=== PATIENT | male | born 1945 | race Caucasian/White ===

== ENCOUNTER 2019-01-31 11:50 | Emergency (ER) | payer MEDICARE, OTHER ==
--- NOTE | 2019-01-31 12:21 | EDM.PDOC ---
ED HPI GENERAL MEDICAL PROBLEM - General Chief Complaint: Head Injury Stated Complaint: FELL HIT HEAD Time Seen by Provider: 01/31/19 12:00 Source of Information: Reports: Patient, Family, RN, RN Notes Reviewed - History of Present Illness INITIAL COMMENTS - FREE TEXT/NARRATIVE: Pt to ER with with c/o laceration to the back of the head from a fall at home. Patient has Parkinson's and is has unsteady gait. Patient stood and had a witnessed fall hitting his head on the coffee table. denies loss of consciousness. She states he has been acting appropriately. She states he has a high pain tolerance, and it is difficult to know when he is having pain. states the patient is not taking any blood thinners. states up to date on Tetanus vaccination. - Related Data Allergies Allergy/AdvReac Type Severity Reaction Status Date / Time No Known Allergies Allergy Verified 01/31/19 12:04 Home Meds: Home Meds Carbidopa/Levodopa [Carbidopa-Levodopa 25-250] 125 mg PO BIDMEALS 05/10/18 [ History] Carbidopa/Levodopa [Carbidopa-Levodopa 25-250] 250 mg PO BEDTIME 05/10/18 [ History] Polyethylene Glycol 3350 [MiraLAX] 17 gm PO ASDIRECTED 05/11/18 [History] Past Medical History HEENT History: Reports: None Cardiovascular History: Reports: None Respiratory History: Reports: Pneumonia, Recurrent Gastrointestinal History: Reports: None Genitourinary History: Reports: UTI, Recurrent Musculoskeletal History: Reports: Other (See Below) Other Musculoskeletal History: Parkinsons disease- shuffled gait Neurological History: Reports: Parkinson's Psychiatric History: Reports: None Endocrine/Metabolic History: Reports: None Hematologic History: Reports: None Immunologic History: Reports: None Oncologic (Cancer) History: Reports: None Dermatologic History: Reports: None - Infectious Disease History Infectious Disease History: Reports: None - Past Surgical History Head Surgeries/Procedures: Reports: None Social & Family History - Family History Family Medical History: Noncontributory - Tobacco Use Smoking Status *Q: Never Smoker - Caffeine Use Caffeine Use: Reports: None - Recreational Drug Use Recreational Drug Use: No ED ROS GENERAL - Review of Systems Review Of Systems: ROS reveals no pertinent complaints other than HPI. ED EXAM, HEAD INJURY - Physical Exam Exam: See Below Exam Limited By: Altered Mental Status (Confused, does not answer appropriately , this is not new.) General Appearance: Alert, WD/WN, No Apparent Distress Head: Normocephalic, Scalp Lacerations, Scalp Tenderness Nexus Criteria: Painful Distraction Injuries. No: Posterior, Midline Cervical Tenderness, Evidence of Intoxication, Altered Level of Consciousness, Focal Neurological Deficit Eyes: Bilateral Eye: EOMI, Normal Inspection, PERRL (4 brisk) Ears: Normal External Exam, Normal Canal, Hearing Grossly Normal, Normal TMs Nose: Normal Inspection, Normal Mucousa, No Blood Throat/Mouth: Normal Inspection, Normal Lips, Normal Teeth, Normal Gums, Normal Oropharynx, Normal Voice, No Airway Compromise Neck: Non-Tender, Full Range of Motion, Normal Alignment, Normal Inspection Respiratory: No Respiratory Distress, Lungs Clear, Normal Breath Sounds, No Accessory Muscle Use, Chest Non-Tender Cardiovascular: Normal Peripheral Pulses, Regular Rate, Rhythm, No Edema, No Gallop, No JVD, No Murmur, No Rub GI/Abdominal Exam: Normal Bowel Sounds, Soft, Non-Tender, No Organomegaly, No Distention, No Abnormal Bruit, No Mass (Male) Exam: Deferred Rectal (Males) Exam: Deferred Back Exam: Full Range of Motion, Normal Inspection, NT Extremities: Normal Inspection, Normal Range of Motion, Non-Tender, No Pedal Edema, Normal Capillary Refill Neurologic: No Motor/Sensory Deficits, Alert, Normal Mood/Affect Skin: Normal Color, Warm/Dry, Other (1cm laceration to the back of the head/ scalp\) - Desi Coma Score Best Eye Response ([place]): (4) Open Spontaneously Best Verbal Response (Desi): (4) Confused Conversation Best Motor Response (Desi): (5) Localizes to Pain Desi Total: 13 (Normal for patient) ED LACERATION/WOUND & ML PROC - Laceration/Wound Repair Middle Posterior Occipital Head Lac/wound length in cm: 1 Appearance: Subcutaneous Distal NVT: Neuro & Vascular Intact Skin Prep: Chlorhexidine (Hibiciens) Exploration/Debridement/Repair: Wound Explored, In a Bloodless Field, Explored to Base, No Foreign Material Found Closed with: Reuben # of Sutures: 3 Drain Placement: No Sterile Dressing Applied: None Tetanus Status Addressed: Yes Complications: No Course - Vital Signs Last Recorded V/S: Last Vital Signs Temp 97.6 F 01/31/19 12:02 Pulse 87 01/31/19 12:02 Resp 18 01/31/19 12:02 BP 125/82 01/31/19 12:02 Pulse Ox 100 01/31/19 12:02 Departure - Departure Time of Disposition: 12:17 Disposition: Home, Self-Care 01 Condition: Fair Clinical Impression: Parkinsons, Laceration, Concussion with no loss of consciousness Fall at home Qualifiers: Encounter type: initial encounter Qualified Code(s): W19.XXXA - Unspecified fall, initial encounter - Discharge Information *PRESCRIPTION DRUG MONITORING PROGRAM REVIEWED*: No *COPY OF PRESCRIPTION DRUG MONITORING REPORT IN PATIENT XUAN: No Instructions: Concussion, Adult, [id number], Post-Concussion Syndrome, Easy- to-Read, Facial or Scalp Contusion, [id number], Head Injury, Adult, Easy-to- Read, Hematoma, [id number] Forms: ED Department Discharge Additional Instructions: Monitor for signs of concussion (change in mental status, headaches, vomiting, uncontrolled emotions, crying) Decrease stimuli, no TV. Rest in quiet, dark room. Follow up with your primary care facility if any problems Have reuben taken out in 7-10 days by your Primary care facility
== END 2019-01-31 12:26 | disposition home or self-care (01) ==
LOC: DL.ED 11:50
DX: S06.0X0A Concussion without loss of consciousness, initial encounter (principal); S01.01XA Laceration without foreign body of scalp, initial encounter; G20 Parkinson's disease; W19.XXXA Unspecified fall, initial encounter; W22.8XXA Striking against or struck by other objects, initial encounter
CPT/HCPCS: 12001; 99283

== ENCOUNTER 2019-08-17 19:47 | Inpatient (IN) | payer MEDICARE, OTHER ==
--- NOTE | 2019-08-17 20:12 | EDM.PDOC ---
ED HPI GENERAL MEDICAL PROBLEM - General Chief Complaint: Fever Stated Complaint: AMBULANCE Time Seen by Provider: 08/17/19 20:07 Source of Information: Reports: Family History Limitations: Reports: Other (parkinson) - History of Present Illness INITIAL COMMENTS - FREE TEXT/NARRATIVE: spouse states pt started getting sick yesterday, no appetite no energy, worse today with fever, occasional cough, no V/D. no acting his usual self, denies falling/head injury. - Related Data Allergies Allergy/AdvReac Type Severity Reaction Status Date / Time No Known Allergies Allergy Verified 08/17/19 20:28 Home Meds: Home Meds Carbidopa/Levodopa [Carbidopa-Levodopa 25-250] 125 mg PO BIDMEALS 05/10/18 [ History] Carbidopa/Levodopa [Carbidopa-Levodopa 25-250] 250 mg PO BEDTIME 05/10/18 [ History] polyethylene glycoL 3350 [MiraLAX] 17 gm PO ASDIRECTED 05/11/18 [History] Past Medical History HEENT History: Reports: None Cardiovascular History: Reports: None Respiratory History: Reports: Pneumonia, Recurrent Gastrointestinal History: Reports: None Genitourinary History: Reports: UTI, Recurrent Musculoskeletal History: Reports: Other (See Below) Other Musculoskeletal History: Parkinsons disease- shuffled gait Neurological History: Reports: Parkinson's Psychiatric History: Reports: None Endocrine/Metabolic History: Reports: None Hematologic History: Reports: None Immunologic History: Reports: None Oncologic (Cancer) History: Reports: None Dermatologic History: Reports: None - Infectious Disease History Infectious Disease History: Reports: None - Past Surgical History Head Surgeries/Procedures: Reports: None Social & Family History - Family History Family Medical History: Noncontributory - Caffeine Use Caffeine Use: Reports: None ED ROS GENERAL - Review of Systems Review Of Systems: Comprehensive ROS is negative, except as noted in HPI. ED EXAM, GENERAL - Physical Exam Exam: See Below Exam Limited By: No Limitations General Appearance: Lethargic, Other (non verbal, follows command ok. ) Ears: Hearing Grossly Normal Throat/Mouth: Inflammation Head: Atraumatic Neck: Non-Tender, Full Range of Motion Respiratory/Chest: No Respiratory Distress, No Accessory Muscle Use, Rhonchi Cardiovascular: Regular Rate, Rhythm GI/Abdominal: Soft, Non-Tender Neurological: Slow to Respond Psychiatric: Flat Affect Skin Exam: Warm, Dry, Normal Color Lymphatic: No Adenopathy Course - Vital Signs Last Recorded V/S: Last Vital Signs Temp 37.6 C 08/17/19 19:53 Pulse 90 08/17/19 19:53 Resp 19 08/17/19 19:53 BP 122/76 08/17/19 19:53 Pulse Ox 98 08/17/19 19:53 - Orders/Labs/Meds Orders: Active Orders 24 hr Category Date Time Status RT Aerosol Therapy [RC] ASDIRECTED Care 08/17/19 21:41 Active RT Aerosol Therapy [RC] ASDIRECTED Care 08/17/19 21:53 Ordered Chest 2V [CR] Urgent Exams 08/17/19 21:41 Stop Req CULTURE BLOOD [BC] Stat Lab 08/17/19 20:09 Results CULTURE STREP A CONFIRMATION [RM] Stat Lab 08/17/19 20:09 Results STREP SCRN A RAPID W CULT CONF [RM] Stat Lab 08/17/19 20:09 Results Isolation [COMM] Routine Oth 08/17/19 20:00 Active Labs: Laboratory Tests 08/17/19 08/17/19 08/17/19 Range/Units 20:09 20:09 20:09 WBC 14.4 H (5.0-10.0) 10^3/uL RBC 4.93 (4.6-6.2) 10^6/uL Hgb 14.8 D (14.0-18.0) g/dL Hct 45.6 (40.0-54.0) % MCV 92.5 (80-100) fL MCH 30.0 (27.0-34.0) pg MCHC 32.5 L (33.0-35.0) g/dL Plt Count 314 (150-450) 10^3/uL Neut % (Auto) 82.2 H (42.2-75.2) % Lymph % (Auto) 7.0 L (20.5-50.1) % [place] % (Auto) 10.2 H (2-8) % Eos % (Auto) 0.4 L (1.0-3.0) % Baso % (Auto) 0.2 (0.0-1.0) % Sodium 142 (136-145) mmol/L Potassium 4.0 (3.5-5.1) mmol/L Chloride 103 (98-107) mmol/L Carbon Dioxide 31 (21-32) mmol/L Anion Gap 12.0 (7-13) mEq/L BUN 26 H (7-18) mg/dL Creatinine 1.21 (0.70-1.30) mg/dL Est Cr Clr Drug Dosing TNP Estimated GFR (MDRD) 59 BUN/Creatinine Ratio 21.5 (No establ ref range) Glucose 101 H (74-99) mg/dL Lactic Acid 1.4 (0.4-2.0) mmol/L Calcium 8.8 (8.5-10.1) mg/dL Total Bilirubin 1.6 H (0.2-1.0) mg/dL AST 104 H (15-37) U/L ALT 34 (16-63) U/L Alkaline Phosphatase 54 (46-116) U/L Total Protein 8.0 (6.4-8.2) g/dL Albumin 3.4 (3.4-5.0) g/dL Globulin 4.6 Albumin/Globulin Ratio 0.7 Meds: Medications Discontinued Medications Generic Name Dose Route Start Last Admin Trade Name Freq PRN Reason Stop Dose Admin Albuterol/Ipratropium 3 ml 08/17/19 21:41 08/17/19 21:46 Duoneb 3.0-0.5 Mg/3 Ml NEB 08/17/19 21:42 3 ml ONETIME ONE Administration Albuterol/Ipratropium 3 ml 08/17/19 21:53 Duoneb 3.0-0.5 Mg/3 Ml NEB 08/17/19 21:54 ONETIME ONE - Re-Assessments/Exams Free Text/Narrative Re-Assessment/Exam: 08/17/19 21:[address] West who kindly admitted pt to observation Departure - Departure Time of Disposition: 21:57 Disposition: Refer to Observation Condition: Good Clinical Impression: Pneumonia Qualifiers: Pneumonia type: due to unspecified organism Laterality: right Lung location: middle lobe of lung Qualified Code(s): J18.9 - Pneumonia, unspecified organism - Discharge Information Forms: ED Department Discharge Sepsis Event Note - Evaluation Sepsis Screening Result: No Definite Risk - Focused Exam Vital Signs: Vital Signs Temp Pulse Resp BP Pulse Ox 08/17/19 19:53 37.6 C 90 19 122/76 98 Date Exam was Performed: 08/17/19 Time Exam was Performed: 21:57 - My Orders Last 24 Hours: My Active Orders 08/17/19 20:00 Isolation [COMM] Routine 08/17/19 20:09 CULTURE BLOOD [BC] Stat CULTURE STREP A CONFIRMATION [RM] Stat STREP SCRN A RAPID W CULT CONF [RM] Stat 08/17/19 21:41 RT Aerosol Therapy [RC] ASDIRECTED Chest 2V [CR] Urgent 08/17/19 21:53 RT Aerosol Therapy [RC] ASDIRECTED - Assessment/Plan Last 24 Hours: My Active Orders 08/17/19 20:00 Isolation [COMM] Routine 08/17/19 20:09 CULTURE BLOOD [BC] Stat CULTURE STREP A CONFIRMATION [RM] Stat STREP SCRN A RAPID W CULT CONF [RM] Stat 08/17/19 21:41 RT Aerosol Therapy [RC] ASDIRECTED Chest 2V [CR] Urgent 08/17/19 21:53 RT Aerosol Therapy [RC] ASDIRECTED
[2019-08-17 20:39] LABS: CHLORIDE,CL 103 mmol/L (98-107); SODIUM,NA 142 mmol/L (136-145)
[2019-08-17] MEDS ORDERED: Albuterol/Ipratropium 3.0-0.5 MG/3 ML Neb Soln NEB ONE ×2 (21:41→21:53)
[2019-08-17] MEDS ORDERED: Ondansetron 4 MG Tab.DIS PO PRN (22:44)
[2019-08-17] MEDS ORDERED: Acetaminophen 325 MG Tab PO PRN (22:44)
--- NOTE | 2019-08-17 22:59 | PCM.HP ---
H&P History of Present Illness - General Date of Service: 08/17/19 Admit Problem/Dx: Admission Diagnosis/Problem Admission Diagnosis/Problem Pneumonia Source of Information: Patient, Family History Limitations: Reports: No Limitations - History of Present Illness Initial Comments - Free Text/Narative: Naomi is a 73 y/o with PMH of Parkinson diseases who was brought to the ED with spouse for feeling unwell, cough x 1 day. As per spouse patient has not been his self since yesterday. He is usually up and about but since yesterday he has been in bed and not very much alert. He has low appetite, low energy, fever, chills, occasional cough. He has not had any sick contact or traveled recently. He denies n/v, abdominal pain. No chest pain. No diarrhea. In the ED vitals unremarkable. Cxr concerning for LLL consolidation. Onset of Symptoms: Reports: Gradual Duration of Symptoms: Reports: Day(s): Location: Reports: Chest Quality: Reports: Ache Improves with: Reports: None Worsens with: Reports: None Associated Symptoms: Reports: Cough, Fever/Chills - Related Data Allergies/Adverse Reactions: Allergies Allergy/AdvReac Type Severity Reaction Status Date / Time No Known Allergies Allergy Verified 08/17/19 20:28 Home Medications: Home Meds Carbidopa/Levodopa [Carbidopa-Levodopa 25-250] 125 mg PO BIDMEALS 05/10/18 [ History] Carbidopa/Levodopa [Carbidopa-Levodopa 25-250] 250 mg PO BEDTIME 05/10/18 [ History] polyethylene glycoL 3350 [MiraLAX] 17 gm PO ASDIRECTED 05/11/18 [History] Past Medical History HEENT History: Reports: None Cardiovascular History: Reports: None Respiratory History: Reports: Pneumonia, Recurrent Gastrointestinal History: Reports: None Genitourinary History: Reports: UTI, Recurrent Musculoskeletal History: Reports: Other (See Below) Other Musculoskeletal History: Parkinsons disease- shuffled gait Neurological History: Reports: Parkinson's Psychiatric History: Reports: None Endocrine/Metabolic History: Reports: None Hematologic History: Reports: None Immunologic History: Reports: None Oncologic (Cancer) History: Reports: None Dermatologic History: Reports: None - Infectious Disease History Infectious Disease History: Reports: None - Past Surgical History Head Surgeries/Procedures: Reports: None Social & Family History - Family History Family Medical History: Noncontributory - Tobacco Use Smoking Status *Q: Never Smoker Second Hand Smoke Exposure: No - Caffeine Use Caffeine Use: Reports: None - Recreational Drug Use Recreational Drug Use: No H&P Review of Systems - Review of Systems: Review Of Systems: See Below General: Reports: No Symptoms HEENT: Reports: No Symptoms Pulmonary: Reports: Cough Cardiovascular: Reports: No Symptoms Gastrointestinal: Reports: No Symptoms Genitourinary: Reports: No Symptoms Musculoskeletal: Reports: No Symptoms Skin: Reports: No Symptoms Psychiatric: Reports: No Symptoms Neurological: Reports: No Symptoms Hematologic/Lymphatic: Reports: No Symptoms Immunologic: Reports: No Symptoms Exam - Exam Exam: See Below - Vital Signs Vital Signs: Last Vital Signs Temp 99.6 F 08/17/19 19:53 Pulse 90 08/17/19 19:53 Resp 19 08/17/19 19:53 BP 122/76 08/17/19 19:53 Pulse Ox 98 08/17/19 19:53 Weight: 148 lb - Exam Quality Assessment: Supplemental Oxygen, DVT Prophylaxis General: Alert, Oriented, 4 HEENT: PERRLA, Hearing Intact, Mucosa Moist & [place], Nares Patent, Normal Nasal Septum, Posterior Pharynx Clear, Conjunctiva Clear, EOMI, EACs Clear, TMs Clear Neck: Supple, Trachea Midline, 2 Lungs: Clear to Auscultation, Normal Respiratory Effort Cardiovascular: Regular Rate, Regular Rhythm GI/Abdominal Exam: Normal Bowel Sounds, Soft, Non-Tender, No Organomegaly, No Distention, No Abnormal Bruit, No Mass, Pelvis Stable (Male) Exam: No Hernia, Normal Inspection, Normal Prostate, Circumcised Rectal (Males) Exam: Normal Exam, Normal Rectal Tone, Prostate Normal Back Exam: Normal Inspection, Full Range of Motion, NT Extremities: Normal Inspection, Normal Range of Motion, Non-Tender, No Pedal Edema, Normal Capillary Refill Skin: Warm, Dry, Intact Neurological: Cranial Nerves Intact, Reflexes Equal Bilateral Neuro Extensive - Mental Status: Alert, Oriented x3, Normal Mood/Affect, Normal Cognition Neuro Extensive - Motor, Sensory, Reflexes: CN II-XII Intact, Normal Gait, Normal Reflexes Psychiatric: Alert, Normal Affect, Normal Mood - Patient Data Lab Results Last 24 hrs: Laboratory Results - last 24 hr 08/17/19 08/17/19 08/17/19 Range/Units 20:09 20:09 20:09 WBC 14.4 H (5.0-10.0) 10^3/uL RBC 4.93 (4.6-6.2) 10^6/uL Hgb 14.8 D (14.0-18.0) g/dL Hct 45.6 (40.0-54.0) % MCV 92.5 (80-100) fL MCH 30.0 (27.0-34.0) pg MCHC 32.5 L (33.0-35.0) g/dL Plt Count 314 (150-450) 10^3/uL Neut % (Auto) 82.2 H (42.2-75.2) % Lymph % (Auto) 7.0 L (20.5-50.1) % [place] % (Auto) 10.2 H (2-8) % Eos % (Auto) 0.4 L (1.0-3.0) % Baso % (Auto) 0.2 (0.0-1.0) % Sodium 142 (136-145) mmol/L Potassium 4.0 (3.5-5.1) mmol/L Chloride 103 (98-107) mmol/L Carbon Dioxide 31 (21-32) mmol/L Anion Gap 12.0 (7-13) mEq/L BUN 26 H (7-18) mg/dL Creatinine 1.21 (0.70-1.30) mg/dL Est Cr Clr Drug Dosing TNP Estimated GFR (MDRD) 59 BUN/Creatinine Ratio 21.5 (No establ ref range) Glucose 101 H (74-99) mg/dL Lactic Acid 1.4 (0.4-2.0) mmol/L Calcium 8.8 (8.5-10.1) mg/dL Total Bilirubin 1.6 H (0.2-1.0) mg/dL AST 104 H (15-37) U/L ALT 34 (16-63) U/L Alkaline Phosphatase 54 (46-116) U/L Total Protein 8.0 (6.4-8.2) g/dL Albumin 3.4 (3.4-5.0) g/dL Globulin 4.6 Albumin/Globulin Ratio 0.7 Result Diagrams: 08/17/19 20:09 08/17/19 20:09 Tomi Results Last 24 hrs: Microbiology 08/17/19 20:09 Group A Streptococcus Rapid Screen - Final Throat NEGATIVE STREP A SCREEN REFERENCE RANGE: NEGATIVE 08/17/19 20:09 Influenza Type A Antigen Screen - Final Nasal, Left NEGATIVE INFLUENZA A VIRUS AG REFERENCE RANGE: NEGATIVE Influenza Type B Antigen Screen - Final NEGATIVE INFLUENZA B VIRUS AG REFERENCE RANGE: NEGATIVE 08/17/19 20:09 Anaerobic Blood Culture - Final Blood Problem List Initiated/Reviewed/Updated: Yes Orders Last 24hrs: Active Orders 24 hr Category Date Time Status Admission Diagnosis [ADT] Stat ADT 08/17/19 21:58 Ordered Admission Status [Patient Status] [ADT] Routine ADT 08/17/19 21:58 Active Ambulate [RC] ASDIRECTED Care 08/17/19 22:44 Ordered Blood Glucose Check, Bedside [RC] WITHMEALSANDBED Care 08/17/19 22:44 Ordered Height and Weight [RC] DAILY Care 08/17/19 22:44 Ordered Intake and Output [RC] QSHIFT Care 08/17/19 22:46 Ordered Notify Provider Vital Signs [RC] ASDIRECTED Care 08/17/19 22:46 Ordered Oxygen Therapy [RC] PRN Care 08/17/19 22:44 Ordered Pulse Oximetry [RC] PRN Care 08/17/19 22:46 Ordered RT Aerosol Therapy [RC] ASDIRECTED Care 08/17/19 21:41 Active RT Aerosol Therapy [RC] ASDIRECTED Care 08/17/19 21:53 Active VTE/DVT Education [RC] PER UNIT ROUTINE Care 08/17/19 22:44 Ordered Vital Signs [RC] Q4H Care 08/17/19 22:44 Ordered OT Evaluation and Treatment [CONS] Routine Cons 08/17/19 22:44 Ordered PT Evaluation and Treatment [CONS] Routine Cons 08/17/19 22:44 Ordered Regular Diet [DIET] Diet 08/17/19 Dinner Ordered BASIC METABOLIC PANEL,BMP [CHEM] DAILY Lab 08/18/19 07:00 Ordered BASIC METABOLIC PANEL,BMP [CHEM] DAILY Lab 08/19/19 07:00 Ordered CBC W/O DIFF,HEMOGRAM [HEME] DAILY Lab 08/18/19 07:00 Ordered CBC W/O DIFF,HEMOGRAM [HEME] DAILY Lab 08/19/19 07:00 Ordered CULTURE BLOOD [BC] Stat Lab 08/17/19 20:09 Results CULTURE SPUTUM + SMEAR [RM] Stat Lab 08/17/19 22:44 Ordered CULTURE STREP A CONFIRMATION [] Stat Lab 08/17/19 20:09 Results GRAM STAIN [] Routine Lab 08/17/19 22:44 Ordered STREP SCRN A RAPID W CULT CONF [] Stat Lab 08/17/19 20:09 Results Acetaminophen [Tylenol] Med 08/17/19 22:44 Ordered 650 mg PO Q4H PRN Azithromycin [Zithromax] 500 mg Med 08/17/19 23:00 Ordered Sodium Chloride 0.9% [Normal Saline (AdvBag)] 250 ml IV Q24H Carbidopa/Levodopa [Sinemet 25-250 mg] Med 08/18/19 08:00 Ordered 125 mg PO BIDMEALS Carbidopa/Levodopa [Sinemet 25-250 mg] Med 08/18/19 21:00 Ordered 250 mg PO BEDTIME Enoxaparin [Lovenox] Med 08/18/19 09:00 Ordered 40 mg SUBCUT DAILY Ondansetron [Zofran ODT] Med 08/17/19 22:44 Ordered 4 mg PO Q6H PRN Sodium Chloride 0.9% @ 125 MLS/HR (1000ml) Med 08/17/19 22:45 Ordered Sodium Chloride 0.9% [Normal Saline] 1,000 ml IV ASDIRECTED cefTRIAXone [Rocephin] 1 gm Med 08/17/19 22:53 Ordered Sodium Chloride 0.9% [Normal Saline] 50 ml IV Q24H polyethylene glycoL 3350 [MiraLAX] Med 08/17/19 23:00 Ordered 17 gm PO ASDIRECTED Isolation [COMM] Routine Oth 08/17/19 20:00 Active Resuscitation Status Routine Resus Stat 08/17/19 22:44 Ordered Medication Orders Acetaminophen (Tylenol) 650 mg PO Q4H PRN PRN Reason: Pain (Mild 1-3)/fever Carbidopa/Levodopa (Sinemet 25-250 Mg) tab PO BEDTIME [place] Carbidopa/Levodopa (Sinemet 25-250 Mg) tab PO BIDMEALS [facility] Enoxaparin Sodium (Lovenox) 40 mg SUBCUT DAILY [place] Sodium Chloride (Normal Saline) 1,000 mls @ 125 mls/hr IV ASDIRECTED [place] Azithromycin 500 mg/ Sodium (Chloride) 250 mls @ 250 mls/hr IV Q24H [facility] Ceftriaxone Sodium 1 gm/ (Sodium Chloride) 50 mls @ 100 mls/hr IV Q24H [facility] Ondansetron HCl (Zofran Odt) 4 mg PO Q6H PRN PRN Reason: nausea, able to take PO Polyethylene Glycol (Miralax) 17 gm PO ASDIRECTED [facility] Assessment/Plan Comment:: #Community Acquired Pneumonia -Admit to medical floor -Sputum for gram stain and cx -Blood cx -IV Rocephin and Azithromycin #Leukocytosis due to above -Daily cbc #H/o Parkinson disease -Continue home medications
[2019-08-17] MEDS: Azithromycin 500 MG in Sodium Chloride 0.9% 250 ML IV SCH (23:51)
[2019-08-17] MEDS: Sodium Chloride 0.9% 1,000 ML IV SCH (23:52)
[2019-08-18] MEDS: cefTRIAXone 1 GM in Sodium Chloride 0.9% 50 ML IV SCH (01:17)
[2019-08-18 06:51] LABS: ANION GAP 11.8 mEq/L (7-13); CHLORIDE,CL 108 mmol/L (98-107); SODIUM,NA 144 mmol/L (136-145)
[2019-08-18] MEDS: Sodium Chloride 0.9% 1,000 ML IV SCH ×2 (07:53→15:54)
[2019-08-18] MEDS ORDERED: Carbidopa/Levodopa 25-250 MG Tab PO SCH ×5 (08:00→21:00)
[2019-08-18] MEDS ORDERED: Polyethylene Glycol 3350 Powder 17 GM Packet PO PRN (09:00)
[2019-08-18] MEDS ORDERED: cefTRIAXone 1 GM in Sodium Chloride 0.9% 50 ML IV SCH (09:00)
[2019-08-18] MEDS: Enoxaparin 40 MG/0.4 ML Syringe SUBCUT SCH (09:02)
--- NOTE | 2019-08-18 10:47 | PCM.PN ---
- General Info Date of Service: 08/18/19 Admission Dx/Problem (Free Text): Admission Diagnosis/Problem Admission Diagnosis/Problem Pneumonia Subjective Update: Naomi is a 73 y/o with PMH of Parkinson diseases who was brought to the ED with spouse for feeling unwell, cough x 1 day. He was admitted for pneumonia. Cxr was concerning for LLL consolidation. He was started on IV abx. Today patient was seen and examined. He is a fairly okay. Patient was seen sitting up in bed being assisted with breakfast. Patient could not provide any history. He is noncommunicative. Vital stable. Functional Status: Reports: Pain Controlled - Review of Systems General: Reports: No Symptoms HEENT: Reports: No Symptoms Pulmonary: Reports: No Symptoms Cardiovascular: Reports: No Symptoms Gastrointestinal: Reports: No Symptoms Genitourinary: Reports: No Symptoms Musculoskeletal: Reports: No Symptoms Skin: Reports: No Symptoms Neurological: Reports: No Symptoms Psychiatric: Reports: No Symptoms - Patient Data Vitals - Most Recent: Last Vital Signs Temp 99.2 F 08/18/19 04:00 Pulse 80 08/18/19 04:00 Resp 18 08/18/19 04:00 BP 98/55 L 08/18/19 04:00 Pulse Ox 95 08/18/19 04:00 Weight - Most Recent: 151 lb I&O - Last 24 Hours: Intake & Output 08/17/19 08/18/19 08/18/19 22:59 06:59 14:59 Intake Total 285 Balance 285 Lab Results Last 24 Hours: Laboratory Results - last 24 hr 08/17/19 08/17/19 08/17/19 Range/Units 20:09 20:09 20:09 WBC 14.4 H (5.0-10.0) 10^3/uL RBC 4.93 (4.6-6.2) 10^6/uL Hgb 14.8 D (14.0-18.0) g/dL Hct 45.6 (40.0-54.0) % MCV 92.5 (80-100) fL MCH 30.0 (27.0-34.0) pg MCHC 32.5 L (33.0-35.0) g/dL Plt Count 314 (150-450) 10^3/uL Neut % (Auto) 82.2 H (42.2-75.2) % Lymph % (Auto) 7.0 L (20.5-50.1) % [place] % (Auto) 10.2 H (2-8) % Eos % (Auto) 0.4 L (1.0-3.0) % Baso % (Auto) 0.2 (0.0-1.0) % Sodium 142 (136-145) mmol/L Potassium 4.0 (3.5-5.1) mmol/L Chloride 103 (98-107) mmol/L Carbon Dioxide 31 (21-32) mmol/L Anion Gap 12.0 (7-13) mEq/L BUN 26 H (7-18) mg/dL Creatinine 1.21 (0.70-1.30) mg/dL Est Cr Clr Drug Dosing TNP Estimated GFR (MDRD) 59 BUN/Creatinine Ratio 21.5 (No establ ref range) Glucose 101 H (74-99) mg/dL POC Glucose (83-110) mg/dl Lactic Acid 1.4 (0.4-2.0) mmol/L Calcium 8.8 (8.5-10.1) mg/dL Total Bilirubin 1.6 H (0.2-1.0) mg/dL Direct Bilirubin (0.0-0.2) mg/dL Indirect Bilirubin AST 104 H (15-37) U/L ALT 34 (16-63) U/L Alkaline Phosphatase 54 (46-116) U/L Total Protein 8.0 (6.4-8.2) g/dL Albumin 3.4 (3.4-5.0) g/dL Globulin 4.6 Albumin/Globulin Ratio 0.7 08/18/19 08/18/19 08/18/19 Range/Units 06:25 06:25 06:25 WBC 12.8 H (5.0-10.0) 10^3/uL RBC 4.04 L (4.6-6.2) 10^6/uL Hgb 12.4 L D (14.0-18.0) g/dL Hct 37.5 L (40.0-54.0) % MCV 92.8 (80-100) fL MCH 30.7 (27.0-34.0) pg MCHC 33.1 (33.0-35.0) g/dL Plt Count 266 (150-450) 10^3/uL Neut % (Auto) (42.2-75.2) % Lymph % (Auto) (20.5-50.1) % [place] % (Auto) (2-8) % Eos % (Auto) (1.0-3.0) % Baso % (Auto) (0.0-1.0) % Sodium 144 (136-145) mmol/L Potassium 3.8 (3.5-5.1) mmol/L Chloride 108 H (98-107) mmol/L Carbon Dioxide 28 (21-32) mmol/L Anion Gap 11.8 (7-13) mEq/L BUN 23 H (7-18) mg/dL Creatinine 1.02 (0.70-1.30) mg/dL Est Cr Clr Drug Dosing 64.35 Estimated GFR (MDRD) > 60 BUN/Creatinine Ratio (No establ ref range) Glucose 120 H (74-99) mg/dL POC Glucose (83-110) mg/dl Lactic Acid (0.4-2.0) mmol/L Calcium 7.6 L (8.5-10.1) mg/dL Total Bilirubin 1.1 H (0.2-1.0) mg/dL Direct Bilirubin 0.2 (0.0-0.2) mg/dL Indirect Bilirubin 0.9 AST 71 H (15-37) U/L ALT 28 (16-63) U/L Alkaline Phosphatase 38 L (46-116) U/L Total Protein 6.0 L (6.4-8.2) g/dL Albumin 2.5 L (3.4-5.0) g/dL Globulin 3.5 Albumin/Globulin Ratio 0.71 03/30/20 Range/Units 08:01 WBC (5.0-10.0) 10^3/uL RBC (4.6-6.2) 10^6/uL Hgb (14.0-18.0) g/dL Hct (40.0-54.0) % MCV (80-100) fL MCH (27.0-34.0) pg MCHC (33.0-35.0) g/dL Plt Count (150-450) 10^3/uL Neut % (Auto) (42.2-75.2) % Lymph % (Auto) (20.5-50.1) % [place] % (Auto) (2-8) % Eos % (Auto) (1.0-3.0) % Baso % (Auto) (0.0-1.0) % Sodium (136-145) mmol/L Potassium (3.5-5.1) mmol/L Chloride (98-107) mmol/L Carbon Dioxide (21-32) mmol/L Anion Gap (7-13) mEq/L BUN (7-18) mg/dL Creatinine (0.70-1.30) mg/dL Est Cr Clr Drug Dosing Estimated GFR (MDRD) BUN/Creatinine Ratio (No establ ref range) Glucose (74-99) mg/dL POC Glucose 107 (83-110) mg/dl Lactic Acid (0.4-2.0) mmol/L Calcium (8.5-10.1) mg/dL Total Bilirubin (0.2-1.0) mg/dL Direct Bilirubin (0.0-0.2) mg/dL Indirect Bilirubin AST (15-37) U/L ALT (16-63) U/L Alkaline Phosphatase (46-116) U/L Total Protein (6.4-8.2) g/dL Albumin (3.4-5.0) g/dL Globulin Albumin/Globulin Ratio Tomi Results Last 24 Hours: Microbiology 08/17/19 20:09 Group A Streptococcus Rapid Screen - Final Throat NEGATIVE STREP A SCREEN REFERENCE RANGE: NEGATIVE 08/17/19 20:09 Influenza Type A Antigen Screen - Final Nasal, Left NEGATIVE INFLUENZA A VIRUS AG REFERENCE RANGE: NEGATIVE Influenza Type B Antigen Screen - Final NEGATIVE INFLUENZA B VIRUS AG REFERENCE RANGE: NEGATIVE 08/17/19 20:09 Anaerobic Blood Culture - Final Blood Med Orders - Current: Current Medications Acetaminophen (Tylenol) 650 mg PO Q4H PRN PRN Reason: Pain (Mild 1-3)/fever Carbidopa/Levodopa (Sinemet 25-250 Mg) 0.5 tab PO BIDMEALS [facility] Last Admin: 08/18/19 09:02 Dose: 0.5 tab Carbidopa/Levodopa (Sinemet Cr 25-100 Mg) 1 tab PO BEDTIME [facility] Enoxaparin Sodium (Lovenox) 40 mg SUBCUT DAILY [facility] Last Admin: 08/18/19 09:02 Dose: 40 mg Sodium Chloride (Normal Saline) 1,000 mls @ 125 mls/hr IV ASDIRECTED [facility] Last Admin: 08/17/19 23:52 Dose: 125 mls/hr Azithromycin 500 mg/ Sodium (Chloride) 250 mls @ 250 mls/hr IV Q24H [facility] Last Admin: 08/17/19 23:51 Dose: 250 mls/hr Ceftriaxone Sodium 1 gm/ (Sodium Chloride) 50 mls @ 100 mls/hr IV Q24H [facility] Last Admin: 08/18/19 01:17 Dose: 100 mls/hr Ondansetron HCl (Zofran Odt) 4 mg PO Q6H PRN PRN Reason: nausea, able to take PO Polyethylene Glycol (Miralax) 17 gm PO DAILY PRN PRN Reason: CONSTIPATION Discontinued Medications Albuterol/Ipratropium (Duoneb 3.0-0.5 Mg/3 Ml) 3 ml NEB ONETIME ONE Stop: 08/17/19 21:42 Last Admin: 08/17/19 21:46 Dose: 3 ml Albuterol/Ipratropium (Duoneb 3.0-0.5 Mg/3 Ml) 3 ml NEB ONETIME ONE Stop: 08/17/19 21:54 Last Admin: 08/17/19 22:02 Dose: Not Given Carbidopa/Levodopa (Sinemet 25-250 Mg) tab PO BEDTIME [facility] Carbidopa/Levodopa (Sinemet 25-250 Mg) tab PO BIDMEALS [facility] Carbidopa/Levodopa (Sinemet 25-250 Mg) 1 tab PO BIDMEALS [facility] Ceftriaxone Sodium 1 gm/ (Sodium Chloride) 50 mls @ 100 mls/hr IV Q24H [facility] - Exam Quality Assessment: DVT Prophylaxis General: Alert, Oriented HEENT: Pupils Equal, Pupils Reactive, EOMI, Mucous Membr. Moist/[place] Neck: Supple Lungs: Clear to Auscultation, Normal Respiratory Effort Cardiovascular: Regular Rate, Regular Rhythm GI/Abdominal Exam: Normal Bowel Sounds, Soft, Non-Tender, No Organomegaly, No Distention, No Abnormal Bruit, No Mass, Pelvis Stable (Male) Exam: No Hernia, Normal Inspection, Normal Prostate, Circumcised Back Exam: Normal Inspection, Full Range of Motion Extremities: Normal Inspection, Normal Range of Motion, Non-Tender, No Pedal Edema, Normal Capillary Refill Skin: Warm, Dry, Intact Wound/Incisions: Healing Well Neurological: No New Focal Deficit Psy/Mental Status: Alert, Normal Affect, Normal Mood Sepsis Event Note - Evaluation Sepsis Screening Result: No Definite Risk - Focused Exam Vital Signs: Vital Signs Temp Pulse Resp BP Pulse Ox 08/18/19 04:00 99.2 F 80 18 98/55 L 95 08/17/19 22:44 99.4 F 87 18 100/57 L 95 Date Exam was Performed: 08/18/19 Time Exam was Performed: 10:40 - Problem List Review Problem List Initiated/Reviewed/Updated: Yes - My Orders Last 24 Hours: My Active Orders 08/17/19 22:44 Ambulate [RC] ASDIRECTED Blood Glucose Check, Bedside [RC] QIDACANDBED Height and Weight [RC] 0600 Oxygen Therapy [RC] PRN VTE/DVT Education [RC] PER UNIT ROUTINE Vital Signs [RC] 00,04,08,12,16,20 OT Evaluation and Treatment [CONS] Routine PT Evaluation and Treatment [CONS] Routine CULTURE SPUTUM + SMEAR [RM] Stat GRAM STAIN [RM] Routine Acetaminophen [Tylenol] 650 mg PO Q4H PRN Ondansetron [Zofran ODT] 4 mg PO Q6H PRN Resuscitation Status Routine 08/17/19 22:45 Sodium Chloride 0.9% [Normal Saline] 1,000 ml IV ASDIRECTED 08/17/19 22:46 Intake and Output [RC] QSHIFT Notify Provider Vital Signs [RC] ASDIRECTED Pulse Oximetry [RC] PRN 08/17/19 23:00 Azithromycin [Zithromax] 500 mg Sodium Chloride 0.9% [Normal Saline (AdvBag)] 250 ml IV Q24H 08/17/19 Dinner Regular Diet [DIET] 08/18/19 00:00 cefTRIAXone [Rocephin] 1 gm Sodium Chloride 0.9% [Normal Saline] 50 ml IV Q24H 08/18/19 08:00 Carbidopa/Levodopa [Sinemet 25-250 mg] 0.5 tab PO BIDMEALS 08/18/19 09:00 Enoxaparin [Lovenox] 40 mg SUBCUT DAILY polyethylene glycoL 3350 [MiraLAX] 17 gm PO DAILY PRN 08/18/19 21:00 Carbidopa/Levodopa [Sinemet Cr 25-100 mg] 1 tab PO BEDTIME 08/19/19 07:00 BASIC METABOLIC PANEL,BMP [CHEM] DAILY CBC W/O DIFF,HEMOGRAM [HEME] DAILY - Plan Plan:: #Community Acquired Pneumonia -Follow up on sputum for gram stain and cx -Follow up on blood cx -IV Rocephin and Azithromycin #Leukocytosis due to above -Improved -Daily cbc #H/o Parkinson disease -Continue home medications #Regular diet #Full code
[2019-08-18] MEDS: Carbidopa/Levodopa 25-250 MG Tab PO SCH ×2 (16:51→20:25)
[2019-08-18] MEDS ORDERED: Carbidopa/Levodopa 25-100 MG Tab.ER PO SCH (21:00)
[2019-08-18] MEDS ORDERED: Sodium Chloride 0.9% 10 ML Syringe FLUSH PRN (22:30)
[2019-08-18] MEDS: Azithromycin 500 MG in Sodium Chloride 0.9% 250 ML IV SCH (22:31)
[2019-08-19] MEDS: cefTRIAXone 1 GM in Sodium Chloride 0.9% 50 ML IV SCH (00:34)
[2019-08-19 06:51] LABS: ANION GAP 12.2 mEq/L (7-13); CHLORIDE,CL 111 mmol/L (98-107); SODIUM,NA 147 mmol/L (136-145)
[2019-08-19] MEDS: Dextrose 5% in Water 1,000 ML IV SCH ×2 (09:26→22:50)
[2019-08-19] MEDS: Enoxaparin 40 MG/0.4 ML Syringe SUBCUT SCH (09:30)
--- NOTE | 2019-08-19 09:44 | PCM.PN ---
- General Info Date of Service: 08/19/19 Admission Dx/Problem (Free Text): Admission Diagnosis/Problem Admission Diagnosis/Problem Pneumonia Subjective Update: Naomi is a 73 y/o with PMH of Parkinson diseases who was brought to the ED with spouse for feeling unwell, cough x 1 day. He was admitted for pneumonia. Cxr was concerning for LLL consolidation. He was started on IV abx. Today patient was seen and examined. He is doing okay. Patient was seen sitting up in bed having breakfast. Patient is noncommunicative and could not provide history. Vital stable. Functional Status: Reports: Pain Controlled - Review of Systems General: Reports: No Symptoms HEENT: Reports: No Symptoms Pulmonary: Reports: No Symptoms Cardiovascular: Reports: No Symptoms Gastrointestinal: Reports: No Symptoms Genitourinary: Reports: No Symptoms Musculoskeletal: Reports: No Symptoms Skin: Reports: No Symptoms Neurological: Reports: No Symptoms Psychiatric: Reports: No Symptoms - Patient Data Vitals - Most Recent: Last Vital Signs Temp 98.0 F 08/19/19 08:05 Pulse 81 08/19/19 08:05 Resp 20 08/19/19 08:05 BP 152/92 H 08/19/19 08:05 Pulse Ox 93 L 08/19/19 08:05 Weight - Most Recent: 152 lb 8 oz I&O - Last 24 Hours: Intake & Output 08/18/19 08/19/19 08/19/19 22:59 06:59 14:59 Intake Total 1050 400 440 Balance 1050 400 440 Lab Results Last 24 Hours: Laboratory Results - last 24 hr 08/18/19 08/18/19 08/18/19 Range/Units 11:40 16:52 20:36 WBC (5.0-10.0) 10^3/uL RBC (4.6-6.2) 10^6/uL Hgb (14.0-18.0) g/dL Hct (40.0-54.0) % MCV (80-100) fL MCH (27.0-34.0) pg MCHC (33.0-35.0) g/dL Plt Count (150-450) 10^3/uL Sodium (136-145) mmol/L Potassium (3.5-5.1) mmol/L Chloride (98-107) mmol/L Carbon Dioxide (21-32) mmol/L Anion Gap (7-13) mEq/L BUN (7-18) mg/dL Creatinine (0.70-1.30) mg/dL Est Cr Clr Drug Dosing mL/min Estimated GFR (MDRD) Glucose (74-99) mg/dL POC Glucose 123 H 129 H 112 H (83-110) mg/dl Calcium (8.5-10.1) mg/dL 08/19/19 08/19/19 08/19/19 Range/Units 05:50 05:50 07:53 WBC 9.5 (5.0-10.0) 10^3/uL RBC 3.71 L (4.6-6.2) 10^6/uL Hgb 11.3 L (14.0-18.0) g/dL Hct 35.2 L (40.0-54.0) % MCV 94.9 (80-100) fL MCH 30.5 (27.0-34.0) pg MCHC 32.1 L (33.0-35.0) g/dL Plt Count 261 (150-450) 10^3/uL Sodium 147 H (136-145) mmol/L Potassium 4.2 (3.5-5.1) mmol/L Chloride 111 H (98-107) mmol/L Carbon Dioxide 28 (21-32) mmol/L Anion Gap 12.2 (7-13) mEq/L BUN 20 H (7-18) mg/dL Creatinine 0.89 (0.70-1.30) mg/dL Est Cr Clr Drug Dosing 74.48 mL/min Estimated GFR (MDRD) > 60 Glucose 105 H (74-99) mg/dL POC Glucose 116 H (83-110) mg/dl Calcium 7.7 L (8.5-10.1) mg/dL Tomi Results Last 24 Hours: Microbiology 08/17/19 20:09 Quick Strep Confirmation Culture - Final Throat NO GROUP A STREP ISOLATED REFERENCE RANGE: NEGATIVE Group A Streptococcus Rapid Screen - Final NEGATIVE STREP A SCREEN REFERENCE RANGE: NEGATIVE 08/17/19 20:09 Aerobic Blood Culture - Preliminary Blood NO GROWTH AFTER 1 DAY Anaerobic Blood Culture - Final Med Orders - Current: Current Medications Acetaminophen (Tylenol) 650 mg PO Q4H PRN PRN Reason: Pain (Mild 1-3)/fever Carbidopa/Levodopa (Sinemet 25-250 Mg) 1 tab PO BEDTIME@2030 [facility] Last Admin: 08/18/19 20:25 Dose: 1 tab Carbidopa/Levodopa (Sinemet 25-250 Mg) 0.5 tab PO BID@0800,1330 [facility] Enoxaparin Sodium (Lovenox) 40 mg SUBCUT DAILY [facility] Last Admin: 08/19/19 09:30 Dose: 40 mg Azithromycin 500 mg/ Sodium (Chloride) 250 mls @ 250 mls/hr IV Q24H [facility] Last Infusion: 08/19/19 00:32 Dose: Infused Ceftriaxone Sodium 1 gm/ (Sodium Chloride) 50 mls @ 100 mls/hr IV Q24H [facility] Last Infusion: 08/19/19 01:43 Dose: Infused Dextrose/Water (Dextrose 5% In Water) 1,000 mls @ 75 mls/hr IV ASDIRECTED [facility] Last Admin: 08/19/19 09:26 Dose: 75 mls/hr Ondansetron HCl (Zofran Odt) 4 mg PO Q6H PRN PRN Reason: nausea, able to take PO Polyethylene Glycol (Miralax) 17 gm PO DAILY PRN PRN Reason: CONSTIPATION Sodium Chloride (Saline Flush) 10 ml FLUSH ASDIRECTED PRN PRN Reason: IV Use Last Admin: 08/19/19 00:34 Dose: 10 ml Discontinued Medications Albuterol/Ipratropium (Duoneb 3.0-0.5 Mg/3 Ml) 3 ml NEB ONETIME ONE Stop: 08/17/19 21:42 Last Admin: 08/17/19 21:46 Dose: 3 ml Albuterol/Ipratropium (Duoneb 3.0-0.5 Mg/3 Ml) 3 ml NEB ONETIME ONE Stop: 08/17/19 21:54 Last Admin: 08/17/19 22:02 Dose: Not Given Carbidopa/Levodopa (Sinemet 25-250 Mg) tab PO BEDTIME [facility] Carbidopa/Levodopa (Sinemet 25-250 Mg) tab PO BIDMEALS [facility] Carbidopa/Levodopa (Sinemet 25-250 Mg) 0.5 tab PO BIDMEALS [facility] Last Admin: 08/18/19 09:02 Dose: 0.5 tab Carbidopa/Levodopa (Sinemet 25-250 Mg) 1 tab PO BIDMEALS [facility] Carbidopa/Levodopa (Sinemet 25-250 Mg) 0.5 tab PO BID@0800,1400 [facility] Last Admin: 08/18/19 16:51 Dose: 0.5 tab Sodium Chloride (Normal Saline) 1,000 mls @ 125 mls/hr IV ASDIRECTED [facility] Last Admin: 08/18/19 15:54 Dose: 125 mls/hr Ceftriaxone Sodium 1 gm/ (Sodium Chloride) 50 mls @ 100 mls/hr IV Q24H [facility] - Exam Quality Assessment: DVT Prophylaxis General: Alert, Oriented HEENT: Pupils Equal, Pupils Reactive, EOMI, Mucous Membr. Moist/[place] Neck: Supple Lungs: Clear to Auscultation, Normal Respiratory Effort Cardiovascular: Regular Rate, Regular Rhythm GI/Abdominal Exam: Normal Bowel Sounds, Soft, Non-Tender, No Organomegaly, No Distention, No Abnormal Bruit, No Mass, Pelvis Stable (Male) Exam: No Hernia, Normal Inspection, Normal Prostate, Circumcised Back Exam: Normal Inspection, Full Range of Motion Extremities: Normal Inspection, Normal Range of Motion, Non-Tender, No Pedal Edema, Normal Capillary Refill Skin: Warm, Dry, Intact Wound/Incisions: Healing Well Neurological: No New Focal Deficit Psy/Mental Status: Alert, Normal Affect, Normal Mood Sepsis Event Note - Evaluation Sepsis Screening Result: No Definite Risk - Focused Exam Vital Signs: Vital Signs Temp Pulse Resp BP Pulse Ox Pulse Ox 08/19/19 08:05 98.0 F 81 20 152/92 H 93 L 08/19/19 03:33 98.4 F 70 20 105/66 98 08/19/19 00:00 98.8 F 72 20 96/57 L 96 96 Date Exam was Performed: 08/19/19 Time Exam was Performed: 09:44 - Problem List & Annotations (1) Hypernatremia SNOMED Code(s): 523704421 Code(s): E87.0 - HYPEROSMOLALITY AND HYPERNATREMIA Status: Acute Current Visit: Yes (2) Generalized weakness SNOMED Code(s): 24943522 Code(s): R53.1 - WEAKNESS Status: Acute Current Visit: Yes - Problem List Review Problem List Initiated/Reviewed/Updated: Yes - My Orders Last 24 Hours: My Active Orders 08/18/19 09:00 Enoxaparin [Lovenox] 40 mg SUBCUT DAILY polyethylene glycoL 3350 [MiraLAX] 17 gm PO DAILY PRN 08/18/19 20:30 Carbidopa/Levodopa [Sinemet 25-250 mg] 1 tab PO BEDTIME@202908/18/19 22:30 Sodium Chloride 0.9% [Saline Flush] 10 ml FLUSH ASDIRECTED PRN 08/19/19 09:00 Dextrose 5% in Water 1,000 ml IV ASDIRECTED 08/19/19 09:23 Patient Status [ADT] Routine 08/19/19 13:30 Carbidopa/Levodopa [Sinemet 25-250 mg] 0.5 tab PO BID@0800,1330 08/19/19 14:00 SODIUM,NA [CHEM] Routine - Plan Plan:: #Community Acquired Pneumonia -Follow up on sputum for gram stain and cx -Follow up on blood cx -Continue IV Rocephin and Azithromycin #Leukocytosis due to above -Resolved #Hypernatremia -5% destrose @ 75 -Monitor serum Na #H/o Parkinson disease -Continue home medications #Generalized weakness -PT/OT #Regular diet #Full code
[2019-08-19] MEDS: Carbidopa/Levodopa 25-250 MG Tab PO SCH ×3 (12:33→20:23)
[2019-08-19] MEDS: Azithromycin 500 MG in Sodium Chloride 0.9% 250 ML IV SCH (22:44)
[2019-08-20] MEDS: cefTRIAXone 1 GM in Sodium Chloride 0.9% 50 ML IV SCH (00:52)
[2019-08-20] MEDS: Enoxaparin 40 MG/0.4 ML Syringe SUBCUT SCH (09:17)
[2019-08-20] MEDS: Carbidopa/Levodopa 25-250 MG Tab PO SCH ×2 (10:37→12:57)
--- NOTE | 2019-08-20 11:06 | PCM.PN ---
- General Info Date of Service: 08/20/19 Subjective Update: The patient is quite sleepy today. Sided to wake him up multiple times and he was very drowsy History limited due to patient factor - Patient Data Vitals - Most Recent: Last Vital Signs Temp 36.8 C 08/20/19 08:00 Pulse 62 08/20/19 08:00 Resp 20 08/20/19 08:00 BP 90/55 L 08/20/19 08:00 Pulse Ox 97 08/20/19 08:00 Weight - Most Recent: 72.257 kg I&O - Last 24 Hours: Intake & Output 08/19/19 08/20/19 08/20/19 22:59 06:59 14:59 Intake Total 1240 293 Balance 1240 293 Lab Results Last 24 Hours: Laboratory Results - last 24 hr 08/19/19 08/20/19 Range/Units 14:20 06:00 Sodium 144 142 (136-145) mmol/L Tomi Results Last 24 Hours: Microbiology 08/17/19 20:09 Aerobic Blood Culture - Preliminary Blood NO GROWTH AFTER 2 DAYS Anaerobic Blood Culture - Final 08/17/19 20:09 Quick Strep Confirmation Culture - Final Throat NO GROUP A STREP ISOLATED REFERENCE RANGE: NEGATIVE Group A Streptococcus Rapid Screen - Final NEGATIVE STREP A SCREEN REFERENCE RANGE: NEGATIVE Med Orders - Current: Current Medications Acetaminophen (Tylenol) 650 mg PO Q4H PRN PRN Reason: Pain (Mild 1-3)/fever Carbidopa/Levodopa (Sinemet 25-250 Mg) 1 tab PO BEDTIME@2030 [facility] Last Admin: 08/19/19 20:23 Dose: 1 tab Carbidopa/Levodopa (Sinemet 25-250 Mg) 0.5 tab PO BID@0800,1330 [facility] Last Admin: 08/20/19 10:37 Dose: Not Given Enoxaparin Sodium (Lovenox) 40 mg SUBCUT DAILY [facility] Last Admin: 08/20/19 09:17 Dose: Not Given Azithromycin 500 mg/ Sodium (Chloride) 250 mls @ 250 mls/hr IV Q24H [facility] Last Admin: 08/19/19 22:44 Dose: 125 mls/hr Ceftriaxone Sodium 1 gm/ (Sodium Chloride) 50 mls @ 100 mls/hr IV Q24H [facility] Last Admin: 08/20/19 00:52 Dose: 100 mls/hr Dextrose/Water (Dextrose 5% In Water) 1,000 mls @ 75 mls/hr IV ASDIRECTED [facility] Last Admin: 08/19/19 22:50 Dose: 75 mls/hr Ondansetron HCl (Zofran Odt) 4 mg PO Q6H PRN PRN Reason: nausea, able to take PO Polyethylene Glycol (Miralax) 17 gm PO DAILY PRN PRN Reason: CONSTIPATION Sodium Chloride (Saline Flush) 10 ml FLUSH ASDIRECTED PRN PRN Reason: IV Use Last Admin: 08/19/19 00:34 Dose: 10 ml Discontinued Medications Albuterol/Ipratropium (Duoneb 3.0-0.5 Mg/3 Ml) 3 ml NEB ONETIME ONE Stop: 08/17/19 21:42 Last Admin: 08/17/19 21:46 Dose: 3 ml Albuterol/Ipratropium (Duoneb 3.0-0.5 Mg/3 Ml) 3 ml NEB ONETIME ONE Stop: 08/17/19 21:54 Last Admin: 08/17/19 22:02 Dose: Not Given Carbidopa/Levodopa (Sinemet 25-250 Mg) tab PO BEDTIME [facility] Carbidopa/Levodopa (Sinemet 25-250 Mg) tab PO BIDMEALS [facility] Carbidopa/Levodopa (Sinemet 25-250 Mg) 0.5 tab PO BIDMEALS [facility] Last Admin: 08/18/19 09:02 Dose: 0.5 tab Carbidopa/Levodopa (Sinemet 25-250 Mg) 1 tab PO BIDMEALS [facility] Carbidopa/Levodopa (Sinemet 25-250 Mg) 0.5 tab PO BID@0800,1400 [facility] Last Admin: 08/19/19 12:33 Dose: Not Given Sodium Chloride (Normal Saline) 1,000 mls @ 125 mls/hr IV ASDIRECTED [facility] Last Admin: 08/18/19 15:54 Dose: 125 mls/hr Ceftriaxone Sodium 1 gm/ (Sodium Chloride) 50 mls @ 100 mls/hr IV Q24H [facility] - Exam General: Lethargic, Other (Drowsy) Lungs: Clear to Auscultation, Normal Respiratory Effort Cardiovascular: Regular Rate, Regular Rhythm GI/Abdominal Exam: Normal Bowel Sounds, Soft, Non-Tender, No Organomegaly, No Distention, No Abnormal Bruit, No Mass, Pelvis Stable Extremities: Normal Inspection, Normal Range of Motion, Non-Tender, No Pedal Edema, Normal Capillary Refill Sepsis Event Note - Evaluation Sepsis Screening Result: No Definite Risk - Focused Exam Vital Signs: Vital Signs Temp Pulse Resp BP Pulse Ox 08/20/19 08:00 36.8 C 62 20 90/55 L 97 08/20/19 04:00 37.4 C 62 16 99/58 L 99 08/20/19 00:00 37.2 C 72 18 95/52 L 98 Date Exam was Performed: 08/20/19 Time Exam was Performed: 11:03 - Problem List Review Problem List Initiated/Reviewed/Updated: Yes - Plan Plan:: #Community Acquired Pneumonia Continue antibiotics We'll monitor patient on possible discharge today or tomorrow depending on clinical improvement-currently very drowsy #Leukocytosis due to above -Resolved #Hypernatremia -5% destrose @ 75 -Monitor serum Na #H/o Parkinson disease -Continue home medications #Generalized weakness -PT/OT #Regular diet #Full code
--- NOTE | 2019-08-20 14:25 | PCM.DCSUM1 ---
Discharge Summary - Hospital Course Free Text/Narrative:: Naomi is a 73 y/o with PMH of Parkinson diseases who was brought to the ED with spouse for feeling unwell, cough x 1 day. He was admitted for pneumonia. Cxr was concerning for LLL consolidation. He was started on IV abx and if feeling better. Had periods of excessive sleepiness enrique in AM. Patients wants to take him home. #Community Acquired Pneumonia #Leukocytosis due to above -Resolved #Hypernatremia #H/o Parkinson disease -Continue home medications #Generalized weakness #. Acute encephalopathy, probably metabolic - Discharge Data Discharge Date: 08/20/19 Discharge Disposition: Home, Self-Care 01 Condition: Fair - Referral to Home Health Primary Care Physician: Ivelisse Cedeno MD - Patient Summary/Data Consults: Consultations 08/17/19 22:44 OT Evaluation and Treatment [CONS] Routine PT Evaluation and Treatment [CONS] Routine - Discharge Plan Prescriptions/Med Rec: Amoxicillin/Potassium Clav [Augmentin 250-62.5 mg/5 ml] 500 mg PO BID 5 Days # 100 ml Azithromycin 250 mg PO DAILY #40 susp.recon Home Medications: Home Meds Carbidopa/Levodopa [Carbidopa-Levodopa 25-250] 1 tab PO BEDTIME 05/10/18 [ History] Carbidopa/Levodopa [Carbidopa-Levodopa 25-250] 0.5 tab PO BIDMEALS 08/18/19 [ History] Amoxicillin/Potassium Clav [Augmentin 250-62.5 mg/5 ml] 500 mg PO BID 5 Days # 100 ml 08/20/19 [Rx] Azithromycin 250 mg PO DAILY #40 susp.recon 08/20/19 [Rx] Referrals: Ivelisse Cedeno MD [Primary Care Provider] - - Discharge Summary/Plan Comment DC Time >30 min.: No - General Info Date of Service: 08/20/19 Subjective Update: Limited due to patient factors - Patient Data Vitals - Most Recent: Last Vital Signs Temp 36.9 C 08/20/19 12:00 Pulse 64 08/20/19 12:00 Resp 20 08/20/19 12:00 BP 98/56 L 08/20/19 12:00 Pulse Ox 97 08/20/19 12:00 Weight - Most Recent: 72.257 kg I&O - Last 24 hours: Intake & Output 08/19/19 08/20/19 08/20/19 22:59 06:59 14:59 Intake Total 1240 293 250 Balance 1240 293 250 Lab Results - Last 24 hrs: Laboratory Results - last 24 hr 08/19/19 08/20/19 Range/Units 14:20 06:00 Sodium 144 142 (136-145) mmol/L LILI Results - Last 24 hrs: Microbiology 08/17/19 20:09 Aerobic Blood Culture - Preliminary Blood NO GROWTH AFTER 2 DAYS Anaerobic Blood Culture - Final Med Orders - Current: Current Medications Acetaminophen (Tylenol) 650 mg PO Q4H PRN PRN Reason: Pain (Mild 1-3)/fever Carbidopa/Levodopa (Sinemet 25-250 Mg) 1 tab PO BEDTIME@2030 PENDING SALE TO [facility] Last Admin: 08/19/19 20:23 Dose: 1 tab Carbidopa/Levodopa (Sinemet 25-250 Mg) 0.5 tab PO BID@0800,1330 PENDING SALE TO [facility] Last Admin: 08/20/19 12:57 Dose: 0.5 tab Enoxaparin Sodium (Lovenox) 40 mg SUBCUT DAILY PENDING SALE TO [facility] Last Admin: 08/20/19 09:17 Dose: Not Given Azithromycin 500 mg/ Sodium (Chloride) 250 mls @ 250 mls/hr IV Q24H PENDING SALE TO [facility] Last Admin: 08/19/19 22:44 Dose: 125 mls/hr Ceftriaxone Sodium 1 gm/ (Sodium Chloride) 50 mls @ 100 mls/hr IV Q24H PENDING SALE TO [facility] Last Admin: 08/20/19 00:52 Dose: 100 mls/hr Dextrose/Water (Dextrose 5% In Water) 1,000 mls @ 75 mls/hr IV ASDIRECTED PENDING SALE TO [facility] Last Admin: 08/19/19 22:50 Dose: 75 mls/hr Ondansetron HCl (Zofran Odt) 4 mg PO Q6H PRN PRN Reason: nausea, able to take PO Polyethylene Glycol (Miralax) 17 gm PO DAILY PRN PRN Reason: CONSTIPATION Sodium Chloride (Saline Flush) 10 ml FLUSH ASDIRECTED PRN PRN Reason: IV Use Last Admin: 08/19/19 00:34 Dose: 10 ml Discontinued Medications Albuterol/Ipratropium (Duoneb 3.0-0.5 Mg/3 Ml) 3 ml NEB ONETIME ONE Stop: 08/17/19 21:42 Last Admin: 08/17/19 21:46 Dose: 3 ml Albuterol/Ipratropium (Duoneb 3.0-0.5 Mg/3 Ml) 3 ml NEB ONETIME ONE Stop: 08/17/19 21:54 Last Admin: 08/17/19 22:02 Dose: Not Given Carbidopa/Levodopa (Sinemet 25-250 Mg) tab PO BEDTIME HAYLEY Carbidopa/Levodopa (Sinemet 25-250 Mg) tab PO BIDMEALS HAYLEY Carbidopa/Levodopa (Sinemet 25-250 Mg) 0.5 tab PO BIDMEALS HAYLEY Last Admin: 08/18/19 09:02 Dose: 0.5 tab Carbidopa/Levodopa (Sinemet 25-250 Mg) 1 tab PO BIDMEALS HAYLEY Carbidopa/Levodopa (Sinemet 25-250 Mg) 0.5 tab PO BID@0800,1400 PENDING SALE TO [facility] Last Admin: 08/19/19 12:33 Dose: Not Given Sodium Chloride (Normal Saline) 1,000 mls @ 125 mls/hr IV ASDIRECTED PENDING SALE TO [facility] Last Admin: 08/18/19 15:54 Dose: 125 mls/hr Ceftriaxone Sodium 1 gm/ (Sodium Chloride) 50 mls @ 100 mls/hr IV Q24H HAYLEY - Exam General: Reports: Alert Neck: Reports: Supple Lungs: Reports: Clear to Auscultation, Normal Respiratory Effort Cardiovascular: Reports: Regular Rate, Regular Rhythm GI/Abdominal Exam: Normal Bowel Sounds, Soft, Non-Tender, No Organomegaly, No Distention, No Abnormal Bruit, No Mass, Pelvis Stable
== END 2019-08-20 15:15 | disposition home or self-care (01) | DRG 193 ==
LOC: DL.ED 19:47 → DL.MS 21:58 → UNDOADMOB 21:58 → INTOOBSV 08-19 09:23 → OBSVTOIN 08-19 09:23
PROVIDERS: ADMIT Student in an Organized Health Care Education/Training Program; ATTEND Hospitalist
DX: J18.9 Pneumonia, unspecified organism (principal); R53.1 Weakness; G93.41 Metabolic encephalopathy; E87.0 Hyperosmolality and hypernatremia; Z87.01 Personal history of pneumonia (recurrent); Z87.440 Personal history of urinary (tract) infections; R26.89 Other abnormalities of gait and mobility; G20 Parkinson's disease; Z79.899 Other long term (current) drug therapy; Z28.82 Immunization not carried out because of caregiver refusal
CPT/HCPCS: 36415 ×3; 71045; 80048 ×2; 80053; 80076; 82962 ×5; 83605; 85025; 85027 ×2; 87040; 87081; 87430; 87804 ×2; 94640; 99285; A9270 ×3; J0456 ×2; J0696 ×2; J1650; J7030 ×3; J7050 ×4; 84295; 96361; 96365; 96366; 96367; 96372; 97162-GP; 97165-GO; 97530-GO; 97530-GP; 99284; G0378; J7060; J7620-GY

== ENCOUNTER 2019-09-22 21:30 | Emergency (ER) | payer MEDICARE, OTHER ==
--- NOTE | 2019-09-22 22:04 | EDM.PDOC ---
ED HPI GENERAL MEDICAL PROBLEM - General Chief Complaint: General Stated Complaint: AMBULANCE Time Seen by Provider: 09/22/19 21:50 Source of Information: Reports: Family History Limitations: Reports: Other (The patient was sleeping throughout examination) - History of Present Illness INITIAL COMMENTS - FREE TEXT/NARRATIVE: This 73 yo male patient was brought to the ED by [facility] and [facility] due to increased confusion, cough and fever. The patient's reports the patient has not been getting around on his own since he was hospitalized on 08/20/19 for pneumonia. The patient's reports the patient seems to be doing worse today. The patient normally is more responsive than he is today. The patient's reports the patient had a fever of up to 100.7 while at home. The patient's also reports the patient has had increased cough over the past 2 days. The patient has a history of Parkinson's disease along with the above mentioned pneumonia and a remote history of a UTI. The patient's reports similar reactions with the previous episode of pneumonia and UTI. Duration: Day(s):, Constant, Getting Worse Location: Reports: Chest, Other Quality: Reports: Other Severity: Moderate Improves with: Reports: None Worsens with: Reports: None Context: Reports: Other Associated Symptoms: Reports: Cough, Fever/Chills, Weakness - Related Data Allergies Allergy/AdvReac Type Severity Reaction Status Date / Time No Known Allergies Allergy Verified 09/22/19 22:22 Home Meds: Home Meds Carbidopa/Levodopa [Carbidopa-Levodopa 25-250] 1 tab PO BEDTIME 05/10/18 [ History] Carbidopa/Levodopa [Carbidopa-Levodopa 25-250] 0.5 tab PO BIDMEALS 08/18/19 [ History] Past Medical History HEENT History: Reports: None Cardiovascular History: Reports: None Respiratory History: Reports: Pneumonia, Recurrent Gastrointestinal History: Reports: None Genitourinary History: Reports: UTI, Recurrent Musculoskeletal History: Reports: Other (See Below) Other Musculoskeletal History: Parkinsons disease- shuffled gait Neurological History: Reports: Parkinson's Psychiatric History: Reports: None Endocrine/Metabolic History: Reports: None Hematologic History: Reports: None Immunologic History: Reports: None Oncologic (Cancer) History: Reports: None Dermatologic History: Reports: None - Infectious Disease History Infectious Disease History: Reports: None - Past Surgical History Head Surgeries/Procedures: Reports: None Social & Family History - Family History Family Medical History: Noncontributory - Caffeine Use Caffeine Use: Reports: None ED ROS GENERAL - Review of Systems Review Of Systems: Comprehensive ROS is negative, except as noted in HPI. ED EXAM, GENERAL - Physical Exam Exam: See Below Exam Limited By: Other (The patient was not arousable throughout assessment.) General Appearance: No Apparent Distress, Mild Distress, Thin Eye Exam: Bilateral Eye: EOMI, PERRL Ears: Normal External Exam, Normal Canal, Hearing Grossly Normal, Normal TMs Nose: Normal Inspection, Normal Mucosa, No Blood Throat/Mouth: Normal Inspection, Normal Lips, Normal Teeth, Normal Gums, Normal Oropharynx, Normal Voice, No Airway Compromise Head: Atraumatic, Normocephalic Neck: Normal Inspection, Supple, Non-Tender, Full Range of Motion Respiratory/Chest: Decreased Breath Sounds (bilateral lower lobes with minimal effort) Cardiovascular: Normal Peripheral Pulses, Regular Rate, Rhythm, No Edema, No Gallop, No JVD, No Murmur, No Rub GI/Abdominal: Normal Bowel Sounds, Soft, Non-Tender, No Organomegaly, No Distention, No Abnormal Bruit, No Mass (Male) Exam: Deferred Rectal (Males) Exam: Deferred Back Exam: Normal Inspection, Full Range of Motion, NT Extremities: Normal Inspection, Normal Range of Motion, Non-Tender, Normal Capillary Refill, No Pedal Edema Neurological: CN II-XII Intact, Unresponsive Skin Exam: Warm, Dry, Intact, Normal Color, No Rash Lymphatic: No Adenopathy Course - Vital Signs Last Recorded V/S: Last Vital Signs Temp 36.7 C 09/22/19 21:30 Pulse 86 09/22/19 21:30 Resp 18 09/22/19 21:30 BP 112/95 H 09/22/19 21:30 Pulse Ox 94 L 09/22/19 21:30 - Orders/Labs/Meds Orders: Active Orders 24 hr Category Date Time Status EKG Documentation Completion [RC] STAT Care 09/22/19 21:29 Active Chest 1V Frontal [CR] Urgent Exams 09/22/19 21:34 Taken CULTURE BLOOD [BC] Stat Lab 09/22/19 21:49 Received cefTRIAXone [Rocephin] 1 gm Med 09/22/19 23:27 Ordered Sodium Chloride 0.9% [Normal Saline] 50 ml IV ONETIME Medication Orders Ceftriaxone Sodium 1 gm/ (Sodium Chloride) 50 mls @ 100 mls/hr IV ONETIME ONE Stop: 09/22/19 23:56 Last Admin: 09/22/19 23:34 Dose: 100 mls/hr Labs: Laboratory Tests 09/22/19 09/22/19 09/22/19 Range/Units 21:41 21:49 21:49 WBC 15.6 H (5.0-10.0) 10^3/uL RBC 4.38 L (4.6-6.2) 10^6/uL Hgb 13.0 L D (14.0-18.0) g/dL Hct 40.1 (40.0-54.0) % MCV 91.6 D (80-100) fL MCH 29.7 (27.0-34.0) pg MCHC 32.4 L (33.0-35.0) g/dL Plt Count 353 D (150-450) 10^3/uL Neut % (Auto) 79.1 H (42.2-75.2) % Lymph % (Auto) 10.8 L (20.5-50.1) % [place] % (Auto) 9.0 H (2-8) % Eos % (Auto) 0.8 L (1.0-3.0) % Baso % (Auto) 0.3 (0.0-1.0) % Sodium 142 (136-145) mmol/L Potassium 4.2 (3.5-5.1) mmol/L Chloride 105 (98-107) mmol/L Carbon Dioxide 33 H (21-32) mmol/L Anion Gap 8.2 (7-13) mEq/L BUN 20 H (7-18) mg/dL Creatinine 1.28 (0.70-1.30) mg/dL Est Cr Clr Drug Dosing TNP Estimated GFR (MDRD) 55 BUN/Creatinine Ratio 15.6 (No establ ref range) Glucose 118 H (74-99) mg/dL Lactic Acid (0.4-2.0) mmol/L Calcium 8.6 (8.5-10.1) mg/dL Total Bilirubin 1.2 H (0.2-1.0) mg/dL AST 109 H (15-37) U/L ALT 33 (16-63) U/L Alkaline Phosphatase 47 (46-116) U/L Troponin I < 0.017 (0.000-0.056) ng/mL Total Protein 6.6 (6.4-8.2) g/dL Albumin 2.7 L (3.4-5.0) g/dL Globulin 3.9 Albumin/Globulin Ratio 0.69 Urine Color Yellow (YELLOW) Urine Appearance Slightly cloudy (CLEAR) Urine pH 6.0 (5.0-9.0) Ur Specific [place] >= 1.030 (1.005-1.030) Urine Protein Negative (NEGATIVE) Urine Glucose (UA) Negative (NEGATIVE) Urine Ketones Negative (NEGATIVE) Urine Occult Blood Moderate H (NEGATIVE) Urine Nitrite Negative (NEGATIVE) Urine Bilirubin Negative (NEGATIVE) Urine Urobilinogen 0.2 (0.2-1.0) mg/dL Ur Leukocyte Esterase Negative (NEGATIVE) Urine RBC 5-10 H /HPF Urine WBC 0-5 (0-5/HPF) /HPF Ur Epithelial Cells Rare (NOT SEEN) /HPF Amorphous Sediment Rare (NOT SEEN) /HPF Urine Bacteria Rare (0-FEW/HPF) /HPF Urine Mucus Few H (NOT SEEN) /LPF SARS-CoV-2 RNA (RT-PCR) (NEGATIVE) 09/22/19 09/22/19 Range/Units 21:49 22:36 WBC (5.0-10.0) 10^3/uL RBC (4.6-6.2) 10^6/uL Hgb (14.0-18.0) g/dL Hct (40.0-54.0) % MCV (80-100) fL MCH (27.0-34.0) pg MCHC (33.0-35.0) g/dL Plt Count (150-450) 10^3/uL Neut % (Auto) (42.2-75.2) % Lymph % (Auto) (20.5-50.1) % [place] % (Auto) (2-8) % Eos % (Auto) (1.0-3.0) % Baso % (Auto) (0.0-1.0) % Sodium (136-145) mmol/L Potassium (3.5-5.1) mmol/L Chloride (98-107) mmol/L Carbon Dioxide (21-32) mmol/L Anion Gap (7-13) mEq/L BUN (7-18) mg/dL Creatinine (0.70-1.30) mg/dL Est Cr Clr Drug Dosing Estimated GFR (MDRD) BUN/Creatinine Ratio (No establ ref range) Glucose (74-99) mg/dL Lactic Acid 1.1 (0.4-2.0) mmol/L Calcium (8.5-10.1) mg/dL Total Bilirubin (0.2-1.0) mg/dL AST (15-37) U/L ALT (16-63) U/L Alkaline Phosphatase (46-116) U/L Troponin I (0.000-0.056) ng/mL Total Protein (6.4-8.2) g/dL Albumin (3.4-5.0) g/dL Globulin Albumin/Globulin Ratio Urine Color (YELLOW) Urine Appearance (CLEAR) Urine pH (5.0-9.0) Ur Specific [place] (1.005-1.030) Urine Protein (NEGATIVE) Urine Glucose (UA) (NEGATIVE) Urine Ketones (NEGATIVE) Urine Occult Blood (NEGATIVE) Urine Nitrite (NEGATIVE) Urine Bilirubin (NEGATIVE) Urine Urobilinogen (0.2-1.0) mg/dL Ur Leukocyte Esterase (NEGATIVE) Urine RBC /HPF Urine WBC (0-5/HPF) /HPF Ur Epithelial Cells (NOT SEEN) /HPF Amorphous Sediment (NOT SEEN) /HPF Urine Bacteria (0-FEW/HPF) /HPF Urine Mucus (NOT SEEN) /LPF SARS-CoV-2 RNA (RT-PCR) Negative (NEGATIVE) Meds: Medications Generic Name Dose Route Start Last Admin Trade Name Freq PRN Reason Stop Dose Admin Ceftriaxone Sodium 1 gm/ 50 mls @ 100 mls/hr 09/22/19 23:27 09/22/19 23:34 Sodium Chloride IV 09/22/19 23:56 100 mls/hr ONETIME ONE Administration - Radiology Interpretation Free Text/Narrative:: PROCEDURE INFORMATION: Exam: XR Chest, 1 View Exam date and time: 09/22/2019 9:58 PM Age: 73 years old Clinical indication: Fever TECHNIQUE: Imaging protocol: XR of the chest Views: 1 view. COMPARISON: CR Chest 1V Frontal 08/17/2019 9:08 PM FINDINGS: Lungs: Segmental consolidation over the right lower lung field. Linear left parahilar consolidation which may represent atelectasis. No lobar infiltrates or consolidation. No edema features. Pleural space: No pleural effusion. Paragraphs normal heart size. Heart/Mediastinum: Nonspecific right hilar fullness. This could represent overlying or adjacent lung consolidation. Cannot exclude adenopathy or central mass. This is more likely an infiltrative process or adenopathy. This was not present 08/17/2019. Bones/joints: Unremarkable. IMPRESSION: 1. Right lower lobe infiltrate. Right parahilar fullness is likely adjacent consolidation or hilar adenopathy. Both of these findings are new since 08/17/2019. 2. Left parahilar linear atelectatic type consolidation. Thank you for allowing us to participate in the care of your patient. Dictated and Authenticated by: Rupesh Jackman MD 09/22/2019 10:17 PM Central Time ([place] & [place]) - Re-Assessments/Exams Free Text/Narrative Re-Assessment/Exam: 09/22/19 23:32 Discussed the patient's history, examination, lab and x-ray results with Dr. Cotto (Hospitalist here at [facility] in [place]). Dr. Cotto advised to transfer the patient to [place] for a possible medication change to his Parkinson's medications due to possible aspiration pneumonia. Departure - Departure Time of Disposition: 23:51 Disposition: DC/Tfer to [facility] 02 Condition: Fair Clinical Impression: Pneumonia Qualifiers: Pneumonia type: due to unspecified organism Laterality: right Lung location: middle lobe of lung Qualified Code(s): J18.9 - Pneumonia, unspecified organism - Discharge Information *PRESCRIPTION DRUG MONITORING PROGRAM REVIEWED*: Not Applicable *COPY OF PRESCRIPTION DRUG MONITORING REPORT IN PATIENT XUAN: Not Applicable Forms: Interfacility Transfer EMTALA Care Plan Goals: Discussed the patient's history, examination, lab, x-ray and treatments with Dr. Young (Hospitalist with [facility] in [place]). Dr Young accepted the patient for continued evaluation and further management as an inpatient at their facility. The patient will be transported by [facility]. Sepsis Event Note - Evaluation Sepsis Screening Result: No Definite Risk - Focused Exam Vital Signs: Vital Signs Temp Pulse Resp BP Pulse Ox 09/22/19 21:30 36.7 C 86 18 112/95 H 94 L Date Exam was Performed: 09/22/19 Time Exam was Performed: 23:51 - My Orders Last 24 Hours: My Active Orders 09/22/19 21:29 EKG Documentation Completion [RC] STAT 09/22/19 21:34 Chest 1V Frontal [CR] Urgent 09/22/19 21:49 CULTURE BLOOD [BC] Stat 09/22/19 23:27 cefTRIAXone [Rocephin] 1 gm Sodium Chloride 0.9% [Normal Saline] 50 ml IV ONETIME - Assessment/Plan Last 24 Hours: My Active Orders 09/22/19 21:29 EKG Documentation Completion [RC] STAT 09/22/19 21:34 Chest 1V Frontal [CR] Urgent 09/22/19 21:49 CULTURE BLOOD [BC] Stat 09/22/19 23:27 cefTRIAXone [Rocephin] 1 gm Sodium Chloride 0.9% [Normal Saline] 50 ml IV ONETIME
[2019-09-22 22:23] LABS: ANION GAP 8.2 mEq/L (7-13); CHLORIDE,CL 105 mmol/L (98-107); SODIUM,NA 142 mmol/L (136-145)
[2019-09-22] MEDS ORDERED: cefTRIAXone 1 GM in Sodium Chloride 0.9% 50 ML IV ONE (23:27)
== END 2019-09-23 00:29 ==
LOC: DL.ED 21:30
DX: J18.9 Pneumonia, unspecified organism (principal); G20 Parkinson's disease; Z20.828 Contact with and (suspected) exposure to other viral communicable diseases
CPT/HCPCS: 36415; 71045; 80053; 81001; 83605; 84484; 85025; 87040; 93005; 96365; 99284; 99285; J0696; J7050; U0002

== ENCOUNTER 2019-11-11 19:50 | Inpatient (IN) | payer MEDICARE, OTHER ==
--- NOTE | 2019-11-11 20:31 | EDM.PDOC ---
ED HPI GENERAL MEDICAL PROBLEM - General Chief Complaint: Respiratory Problem Stated Complaint: AMB Time Seen by Provider: 11/11/19 20:15 Source of Information: Reports: Family (Patient's ) History Limitations: Reports: No Limitations - History of Present Illness INITIAL COMMENTS - FREE TEXT/NARRATIVE: This 73 yo male patient was brought to the ED by [facility] due to a cough (2-3 days intermittent) and fever (today 101). The patient has a history of Parkinson's disease. The patient was sent to [facility] in [place] on September 24 for pneumonia. Since discharge, the patient's reports the patient has been very tired and lying in bed most of the time. The reports the patient has only been given the smaller dose of his Parkinson's medications due to the increased tiredness. Onset: Gradual Duration: Day(s):, Constant, Getting Worse Location: Reports: Chest, Other Quality: Reports: Other Severity: Moderate Improves with: Reports: None Worsens with: Reports: None Context: Reports: Other Associated Symptoms: Reports: No Other Symptoms - Related Data Allergies Allergy/AdvReac Type Severity Reaction Status Date / Time No Known Allergies Allergy Verified 11/11/19 19:59 Home Meds: Home Meds Carbidopa/Levodopa [Carbidopa-Levodopa 25-250] 1 tab PO BEDTIME 05/10/18 [ History] Carbidopa/Levodopa [Carbidopa-Levodopa 25-250] 0.5 tab PO BIDMEALS 08/18/19 [History] Past Medical History HEENT History: Reports: None Cardiovascular History: Reports: None Respiratory History: Reports: Pneumonia, Recurrent Gastrointestinal History: Reports: None Genitourinary History: Reports: UTI, Recurrent Musculoskeletal History: Reports: Other (See Below) Other Musculoskeletal History: Parkinsons disease- shuffled gait Neurological History: Reports: Parkinson's Psychiatric History: Reports: None Endocrine/Metabolic History: Reports: None Hematologic History: Reports: None Immunologic History: Reports: None Oncologic (Cancer) History: Reports: None Dermatologic History: Reports: None - Infectious Disease History Infectious Disease History: Reports: None - Past Surgical History Head Surgeries/Procedures: Reports: None Social & Family History - Family History Family Medical History: Noncontributory - Tobacco Use Smoking Status *Q: Never Smoker Second Hand Smoke Exposure: No - Caffeine Use Caffeine Use: Reports: None - Recreational Drug Use Recreational Drug Use: No ED ROS GENERAL - Review of Systems Review Of Systems: Comprehensive ROS is negative, except as noted in HPI. ED EXAM, GENERAL - Physical Exam Exam: See Below Exam Limited By: No Limitations General Appearance: Alert, WD/WN, Moderate Distress Eye Exam: Bilateral Eye: EOMI, Normal Inspection, PERRL Ears: Normal External Exam, Normal Canal, Hearing Grossly Normal, Normal TMs Nose: Normal Inspection, Normal Mucosa, No Blood Throat/Mouth: Normal Inspection, Normal Lips, Normal Teeth, Normal Gums, Normal Oropharynx, Normal Voice, No Airway Compromise Head: Atraumatic, Normocephalic Neck: Normal Inspection, Supple, Non-Tender, Full Range of Motion Respiratory/Chest: Decreased Breath Sounds (throughout) Cardiovascular: Normal Peripheral Pulses, Regular Rate, Rhythm, No Edema, No Gallop, No JVD, No Murmur, No Rub GI/Abdominal: Normal Bowel Sounds, Soft, Non-Tender, No Organomegaly, No Distention, No Abnormal Bruit, No Mass (Male) Exam: Deferred Rectal (Males) Exam: Deferred Back Exam: Normal Inspection, Full Range of Motion, NT Extremities: Normal Inspection, Normal Range of Motion, Non-Tender, Normal Capillary Refill, No Pedal Edema Neurological: Alert, Oriented, CN II-XII Intact, Normal Cognition, Normal Gait, Normal Reflexes, No Motor/Sensory Deficits Psychiatric: Normal Affect, Normal Mood Skin Exam: Warm, Dry, Intact, Normal Color, No Rash Lymphatic: No Adenopathy Course - Vital Signs Last Recorded V/S: Last Vital Signs Temp 37.4 C 11/11/19 19:50 Pulse 103 H 11/11/19 19:50 Resp 24 H 11/11/19 19:50 BP 159/105 H 11/11/19 19:50 Pulse Ox 98 11/11/19 19:50 - Orders/Labs/Meds Orders: Active Orders 24 hr Category Date Time Status Admission Diagnosis [ADT] Urgent ADT 11/11/19 22:44 Ordered Admission Status [Patient Status] [ADT] Routine ADT 11/11/19 22:44 Ordered EKG Documentation Completion [RC] STAT Care 11/11/19 20:01 Active CULTURE BLOOD [BC] Stat Lab 11/11/19 20:29 Results REFLEX LACTIC ACID YES OR NO [CHEM] Routine Lab 11/11/19 20:59 Received UA RFX LILI AND CULT IF INDIC [URIN] Urgent Lab 11/11/19 19:59 Ordered cefTRIAXone [Rocephin] 1 gm Med 11/11/19 22:27 Active Sodium Chloride 0.9% [Normal Saline] 50 ml IV ONETIME Medication Orders Ceftriaxone Sodium 1 gm/ (Sodium Chloride) 50 mls @ 100 mls/hr IV ONETIME ONE Stop: 11/11/19 22:56 Labs: Laboratory Tests 11/11/19 11/11/19 11/11/19 Range/Units 20:29 20:29 20:29 WBC 14.0 H (5.0-10.0) 10^3/uL RBC 4.61 (4.6-6.2) 10^6/uL Hgb 12.9 L (14.0-18.0) g/dL Hct 40.6 (40.0-54.0) % MCV 88.1 D (80-100) fL MCH 28.0 (27.0-34.0) pg MCHC 31.8 L (33.0-35.0) g/dL Plt Count 317 (150-450) 10^3/uL Neut % (Auto) 87.0 H (42.2-75.2) % Lymph % (Auto) 4.4 L (20.5-50.1) % [place] % (Auto) 7.6 (2-8) % Eos % (Auto) 0.9 L (1.0-3.0) % Baso % (Auto) 0.1 (0.0-1.0) % Sodium 143 (136-145) mmol/L Potassium 4.3 (3.5-5.1) mmol/L Chloride 109 H (98-107) mmol/L Carbon Dioxide 30 (21-32) mmol/L Anion Gap 8.3 (7-13) mEq/L BUN 18 (7-18) mg/dL Creatinine 1.05 (0.70-1.30) mg/dL Est Cr Clr Drug Dosing TNP Estimated GFR (MDRD) > 60 BUN/Creatinine Ratio 17.1 (No establ ref range) Glucose 109 H (74-99) mg/dL Lactic Acid 2.1 H* (0.4-2.0) mmol/L Calcium 8.6 (8.5-10.1) mg/dL Total Bilirubin 1.5 H (0.2-1.0) mg/dL AST 17 (15-37) U/L ALT 21 (16-63) U/L Alkaline Phosphatase 57 (46-116) U/L Troponin I < 0.017 (0.000-0.056) ng/mL B-Natriuretic Peptide 54 (0-100) pg/ml Total Protein 6.6 (6.4-8.2) g/dL Albumin 2.9 L (3.4-5.0) g/dL Globulin 3.7 Albumin/Globulin Ratio 0.78 SARS-CoV-2 RNA (RT-PCR) (NEGATIVE) 11/11/19 Range/Units 21:48 WBC (5.0-10.0) 10^3/uL RBC (4.6-6.2) 10^6/uL Hgb (14.0-18.0) g/dL Hct (40.0-54.0) % MCV (80-100) fL MCH (27.0-34.0) pg MCHC (33.0-35.0) g/dL Plt Count (150-450) 10^3/uL Neut % (Auto) (42.2-75.2) % Lymph % (Auto) (20.5-50.1) % Barnes % (Auto) (2-8) % Eos % (Auto) (1.0-3.0) % Baso % (Auto) (0.0-1.0) % Sodium (136-145) mmol/L Potassium (3.5-5.1) mmol/L Chloride (98-107) mmol/L Carbon Dioxide (21-32) mmol/L Anion Gap (7-13) mEq/L BUN (7-18) mg/dL Creatinine (0.70-1.30) mg/dL Est Cr Clr Drug Dosing Estimated GFR (MDRD) BUN/Creatinine Ratio (No establ ref range) Glucose (74-99) mg/dL Lactic Acid (0.4-2.0) mmol/L Calcium (8.5-10.1) mg/dL Total Bilirubin (0.2-1.0) mg/dL AST (15-37) U/L ALT (16-63) U/L Alkaline Phosphatase (46-116) U/L Troponin I (0.000-0.056) ng/mL B-Natriuretic Peptide (0-100) pg/ml Total Protein (6.4-8.2) g/dL Albumin (3.4-5.0) g/dL Globulin Albumin/Globulin Ratio SARS-CoV-2 RNA (RT-PCR) Negative (NEGATIVE) Meds: Medications Generic Name Dose Route Start Last Admin Trade Name Freq PRN Reason Stop Dose Admin Ceftriaxone Sodium 1 gm/ 50 mls @ 100 mls/hr 11/11/19 22:27 Sodium Chloride IV 11/11/19 22:56 ONETIME ONE Departure - Departure Time of Disposition: 22:48 Disposition: Admitted As Inpatient 68 Condition: Fair Clinical Impression: Pneumonia Qualifiers: Pneumonia type: due to unspecified organism Laterality: right Lung location: middle lobe of lung Qualified Code(s): J18.9 - Pneumonia, unspecified organism - Discharge Information *PRESCRIPTION DRUG MONITORING PROGRAM REVIEWED*: Not Applicable *COPY OF PRESCRIPTION DRUG MONITORING REPORT IN PATIENT XUAN: Not Applicable Care Plan Goals: Discussed the patient's history, examination, lab and x-ray results with Dr. Kentrell frausto. Dr. Hermosillo accepted the patient for continued evaluation and management as an inpatient at [facility]. Sepsis Event Note (ED) - Evaluation Sepsis Screening Result: No Definite Risk - Focused Exam Vital Signs: Vital Signs Temp Pulse Resp BP Pulse Ox 11/11/19 19:50 37.4 C 103 H 24 H 159/105 H 98 - My Orders Last 24 Hours: My Active Orders 11/11/19 19:59 UA RFX LILI AND CULT IF INDIC [URIN] Urgent 11/11/19 20:01 EKG Documentation Completion [RC] STAT 11/11/19 20:29 CULTURE BLOOD [BC] Stat 11/11/19 20:59 REFLEX LACTIC ACID YES OR NO [CHEM] Routine 11/11/19 22:27 cefTRIAXone [Rocephin] 1 gm Sodium Chloride 0.9% [Normal Saline] 50 ml IV ONETIME 11/11/19 22:44 Admission Diagnosis [ADT] Urgent Admission Status [Patient Status] [ADT] Routine - Assessment/Plan Last 24 Hours: My Active Orders 11/11/19 19:59 UA RFX LILI AND CULT IF INDIC [URIN] Urgent 11/11/19 20:01 EKG Documentation Completion [RC] STAT 11/11/19 20:29 CULTURE BLOOD [BC] Stat 11/11/19 20:59 REFLEX LACTIC ACID YES OR NO [CHEM] Routine 11/11/19 22:27 cefTRIAXone [Rocephin] 1 gm Sodium Chloride 0.9% [Normal Saline] 50 ml IV ONETIME 11/11/19 22:44 Admission Diagnosis [ADT] Urgent Admission Status [Patient Status] [ADT] Routine
[2019-11-11 20:56] LABS: ANION GAP 8.3 mEq/L (7-13); CHLORIDE,CL 109 mmol/L (98-107); SODIUM,NA 143 mmol/L (136-145)
--- NOTE | 2019-11-11 22:18 | CR ---
PROCEDURE INFORMATION: Exam: XR Chest, 1 View Exam date and time: 11/11/2019 10:12 PM Age: 73 years old Clinical indication: Other: Short of breath TECHNIQUE: Imaging protocol: XR of the chest Views: 1 view. COMPARISON: CR Chest 1V Frontal 09/22/2019 9:58 PM FINDINGS: Lungs: Improved right infrahilar consolidation. Prominent right hilum, new since 08/17/2019. Consider chest CT for further assessment. Pleural space: Unremarkable. No pleural effusion. No pneumothorax. Heart/Mediastinum: Unremarkable. No cardiomegaly. Bones/joints: Unremarkable. IMPRESSION: 1. Improved pulmonary aeration at the right lung base since the prior study. 2. Consider chest CT to better evaluate prominent right hilum.
[2019-11-11] MEDS ORDERED: cefTRIAXone 1 GM in Sodium Chloride 0.9% 50 ML IV ONE (22:27)
[2019-11-11] MEDS ORDERED: Acetaminophen 325 MG Tab PO PRN (22:48)
[2019-11-11] MEDS ORDERED: Ondansetron 4 MG/2 ML SDV IVPUSH PRN (22:48)
[2019-11-11] MEDS ORDERED: Sodium Chloride 0.9% 1,000 ML IV SCH (23:00)
[2019-11-11] MEDS ORDERED: Azithromycin 500 MG in Sodium Chloride 0.9% 250 ML IV SCH (23:00)
--- NOTE | 2019-11-12 00:07 | PCM.HP ---
H&P History of Present Illness - General Date of Service: 11/11/19 Admit Problem/Dx: Admission Diagnosis/Problem Admission Diagnosis/Problem Pneumonia Source of Information: Family - History of Present Illness Initial Comments - Free Text/Narative: This is a 73-year-old man with medical history of Parkinson disease. The patient was recently admitted at [facility] because of pneumonia and was discharged about one month ago. For the past 3-4 days patient has been having intermittent fevers sometimes associated with chills and rigors. He has also been coughing but has difficulty expectorating. He has been weak to the point that he had he gets out of bed. Has not been ambulatory since his last discharge from the hospital. Tonight he started having recurrent fever and was brought to the emergency room. There has not been any vomiting. - Related Data Allergies/Adverse Reactions: Allergies Allergy/AdvReac Type Severity Reaction Status Date / Time No Known Allergies Allergy Verified 11/11/19 19:59 Home Medications: Home Meds Carbidopa/Levodopa [Carbidopa-Levodopa 25-250] 1 tab PO BEDTIME 05/10/18 [Histo ry] Carbidopa/Levodopa [Carbidopa-Levodopa 25-250] 0.5 tab PO BIDMEALS 08/18/19 [History] Past Medical History HEENT History: Reports: None Cardiovascular History: Reports: None Respiratory History: Reports: Pneumonia, Recurrent Gastrointestinal History: Reports: None Genitourinary History: Reports: UTI, Recurrent Musculoskeletal History: Reports: Other (See Below) Other Musculoskeletal History: Parkinsons disease- shuffled gait Neurological History: Reports: Parkinson's Psychiatric History: Reports: None Endocrine/Metabolic History: Reports: None Hematologic History: Reports: None Immunologic History: Reports: None Oncologic (Cancer) History: Reports: None Dermatologic History: Reports: None - Infectious Disease History Infectious Disease History: Reports: None - Past Surgical History Head Surgeries/Procedures: Reports: None Social & Family History - Family History Family Medical History: Noncontributory - Tobacco Use Smoking Status *Q: Never Smoker Second Hand Smoke Exposure: No - Caffeine Use Caffeine Use: Reports: None - Recreational Drug Use Recreational Drug Use: No H&P Review of Systems - Review of Systems: Review Of Systems: Unable To Obtain Reason Not Obtained: Patient is drowsy. General: Reports: Weakness, Fatigue Pulmonary: Reports: No Symptoms Exam - Exam Exam: See Below - Vital Signs Vital Signs: Last Vital Signs Temp 37.4 C 11/11/19 19:50 Pulse 103 H 11/11/19 19:50 Resp 24 H 11/11/19 19:50 BP 159/105 H 11/11/19 19:50 Pulse Ox 98 11/11/19 19:50 Weight: 64.592 kg - Exam General: Sedated, Lethargic HEENT: PERRLA, Hearing Intact, Mucosa Moist & [place], Nares Patent, Normal Nasal Septum, Posterior Pharynx Clear, Conjunctiva Clear, EOMI, EACs Clear, TMs Clear Neck: Supple, Trachea Midline, 2 Lungs: Decreased Breath Sounds Cardiovascular: Regular Rate, Regular Rhythm GI/Abdominal Exam: Normal Bowel Sounds, Soft, Non-Tender, No Organomegaly, No Distention, No Abnormal Bruit, No Mass, Pelvis Stable Extremities: Normal Inspection, Normal Range of Motion, Non-Tender, No Pedal Edema, Normal Capillary Refill Skin: Warm, Dry, Intact - Patient Data Lab Results Last 24 hrs: Laboratory Results - last 24 hr 11/11/19 11/11/19 11/11/19 Range/Units 20:29 20:29 20:29 WBC 14.0 H (5.0-10.0) 10^3/uL RBC 4.61 (4.6-6.2) 10^6/uL Hgb 12.9 L (14.0-18.0) g/dL Hct 40.6 (40.0-54.0) % MCV 88.1 D (80-100) fL MCH 28.0 (27.0-34.0) pg MCHC 31.8 L (33.0-35.0) g/dL Plt Count 317 (150-450) 10^3/uL Neut % (Auto) 87.0 H (42.2-75.2) % Lymph % (Auto) 4.4 L (20.5-50.1) % [place] % (Auto) 7.6 (2-8) % Eos % (Auto) 0.9 L (1.0-3.0) % Baso % (Auto) 0.1 (0.0-1.0) % Sodium 143 (136-145) mmol/L Potassium 4.3 (3.5-5.1) mmol/L Chloride 109 H (98-107) mmol/L Carbon Dioxide 30 (21-32) mmol/L Anion Gap 8.3 (7-13) mEq/L BUN 18 (7-18) mg/dL Creatinine 1.05 (0.70-1.30) mg/dL Est Cr Clr Drug Dosing TNP Estimated GFR (MDRD) > 60 BUN/Creatinine Ratio 17.1 (No establ ref range) Glucose 109 H (74-99) mg/dL Lactic Acid 2.1 H* (0.4-2.0) mmol/L Calcium 8.6 (8.5-10.1) mg/dL Total Bilirubin 1.5 H (0.2-1.0) mg/dL AST 17 (15-37) U/L ALT 21 (16-63) U/L Alkaline Phosphatase 57 (46-116) U/L Troponin I < 0.017 (0.000-0.056) ng/mL B-Natriuretic Peptide 54 (0-100) pg/ml Total Protein 6.6 (6.4-8.2) g/dL Albumin 2.9 L (3.4-5.0) g/dL Globulin 3.7 Albumin/Globulin Ratio 0.78 SARS-CoV-2 RNA (RT-PCR) (NEGATIVE) 11/11/19 Range/Units 21:48 WBC (5.0-10.0) 10^3/uL RBC (4.6-6.2) 10^6/uL Hgb (14.0-18.0) g/dL Hct (40.0-54.0) % MCV (80-100) fL MCH (27.0-34.0) pg MCHC (33.0-35.0) g/dL Plt Count (150-450) 10^3/uL Neut % (Auto) (42.2-75.2) % Lymph % (Auto) (20.5-50.1) % [place] % (Auto) (2-8) % Eos % (Auto) (1.0-3.0) % Baso % (Auto) (0.0-1.0) % Sodium (136-145) mmol/L Potassium (3.5-5.1) mmol/L Chloride (98-107) mmol/L Carbon Dioxide (21-32) mmol/L Anion Gap (7-13) mEq/L BUN (7-18) mg/dL Creatinine (0.70-1.30) mg/dL Est Cr Clr Drug Dosing Estimated GFR (MDRD) BUN/Creatinine Ratio (No establ ref range) Glucose (74-99) mg/dL Lactic Acid (0.4-2.0) mmol/L Calcium (8.5-10.1) mg/dL Total Bilirubin (0.2-1.0) mg/dL AST (15-37) U/L ALT (16-63) U/L Alkaline Phosphatase (46-116) U/L Troponin I (0.000-0.056) ng/mL B-Natriuretic Peptide (0-100) pg/ml Total Protein (6.4-8.2) g/dL Albumin (3.4-5.0) g/dL Globulin Albumin/Globulin Ratio SARS-CoV-2 RNA (RT-PCR) Negative (NEGATIVE) Result Diagrams: 11/11/19 20:29 11/11/19 20:29 Tomi Results Last 24 hrs: Microbiology 11/11/19 20:29 Anaerobic Blood Culture - Final Blood Problem List Initiated/Reviewed/Updated: Yes Orders Last 24hrs: Active Orders 24 hr Category Date Time Status Admission Diagnosis [ADT] Urgent ADT 11/11/19 22:44 Ordered Admission Status [Patient Status] [ADT] Routine ADT 11/11/19 22:44 Active Patient Status [ADT] Routine ADT 11/11/19 22:49 Active EKG Documentation Completion [RC] STAT Care 11/11/19 20:01 Active Intake and Output [RC] QSHIFT Care 11/11/19 22:50 Active Oxygen Therapy [RC] PRN Care 11/11/19 22:49 Active Up ad Abbie [RC] ASDIRECTED Care 11/11/19 22:48 Active VTE/DVT Education [RC] PER UNIT ROUTINE Care 11/11/19 22:49 Active Vital Signs [RC] Q4H Care 11/11/19 22:49 Active Regular Diet [DIET] Diet 11/11/19 Breakfast Active BASIC METABOLIC PANEL,BMP [CHEM] AM Lab 11/12/19 05:11 Ordered CBC WITH AUTO DIFF [HEME] AM Lab 11/12/19 05:11 Ordered CULTURE BLOOD [BC] Stat Lab 11/11/19 20:29 Results CULTURE SPUTUM + SMEAR [RM] Stat Lab 11/11/19 22:48 Ordered LACTIC ACID [CHEM] Routine Lab 11/11/19 23:59 Ordered UA W/MICROSCOPIC [URIN] Routine Lab 11/11/19 22:48 Ordered Acetaminophen [Tylenol] Med 11/11/19 22:48 Active 650 mg PO Q4H PRN Azithromycin [Zithromax] 500 mg Med 11/11/19 23:00 Active Sodium Chloride 0.9% [Normal Saline (AdvBag)] 250 ml IV Q24H Carbidopa/Levodopa [Sinemet 25-250 mg] Med 11/12/19 08:00 Active 0.5 tab PO BIDMEALS Carbidopa/Levodopa [Sinemet 25-250 mg] Med 11/12/19 21:00 Active 1 tab PO BEDTIME Enoxaparin [Lovenox] Med 11/12/19 09:00 Pending 30 mg SUBCUT DAILY Ondansetron [Zofran] Med 11/11/19 22:48 Active 4 mg IVPUSH Q6H PRN Sodium Chloride 0.9% [Normal Saline] 1,000 ml Med 11/11/19 23:00 Active IV ASDIRECTED cefTRIAXone [Rocephin] 1 gm Med 11/12/19 22:00 Active Sodium Chloride 0.9% [Normal Saline] 50 ml IV Q24H metroNIDAZOLE/Normal Saline [Flagyl 500 MG in NS 100 ML Med 11/12/19 00:00 Ordered ] 500 mg Premix Bag 100 bag IV Q8H Resuscitation Status Routine Resus Stat 11/11/19 22:48 Ordered Medication Orders Acetaminophen (Tylenol) 650 mg PO Q4H PRN PRN Reason: Pain (Mild 1-3)/fever Carbidopa/Levodopa (Sinemet 25-250 Mg) 0.5 tab PO BIDMEALS HAYLEY Carbidopa/Levodopa (Sinemet 25-250 Mg) 1 tab PO BEDTIME HAYLEY Enoxaparin Sodium (Lovenox) 30 mg SUBCUT DAILY HAYLEY Sodium Chloride (Normal Saline) 1,000 mls @ 125 mls/hr IV ASDIRECTED HAYLEY Last Admin: 11/11/19 23:55 Dose: 125 mls/hr Documented by: SHOAIB Ceftriaxone Sodium 1 gm/ (Sodium Chloride) 50 mls @ 100 mls/hr IV Q24H HAYLEY Azithromycin 500 mg/ Sodium (Chloride) 250 mls @ 250 mls/hr IV Q24H [facility] Last Admin: 11/11/19 23:55 Dose: 250 mls/hr Documented by: SHOAIB Metronidazole 500 mg/ Premix 100 mls @ 100 mls/hr IV Q8H HAYLEY Ondansetron HCl (Zofran) 4 mg IVPUSH Q6H PRN PRN Reason: Nausea/Vomiting Assessment/Plan Comment:: #. Probable sepsis The patient presented tachycardic and also has leukocytosis and fever. Likely secondary to pneumonia #. Pneumonia This is probably aspiration pneumonia Patient's indicates that he sometimes pockets food in his mouth. Coughs sometimes when he eats. Recently had a swallow study during his admission one month ago in [place]. #. Parkinson's disease Patient is having more symptoms. Has not been ambulatory lately. Plan: Admit patient to medical floor Intravenous Rocephin intravenous Flagyl Intravenous fluid with normal saline going at 125 mL an hour Obtain repeat complete blood count Obtain repeat basic metabolic panel
[2019-11-12] MEDS: metroNIDAZOLE/Normal Saline 500 MG in Premix Bag 100 BAG IV SCH ×2 (01:16→08:57)
[2019-11-12 06:55] LABS: ANION GAP 11.1 mEq/L (7-13); CHLORIDE,CL 110 mmol/L (98-107); SODIUM,NA 145 mmol/L (136-145)
[2019-11-12] MEDS: Carbidopa/Levodopa 25-250 MG Tab PO SCH ×3 (09:47→21:14)
[2019-11-12] MEDS: Enoxaparin 40 MG/0.4 ML Syringe SUBCUT SCH (09:48)
--- NOTE | 2019-11-12 10:26 | PCM.PN ---
- General Info Date of Service: 11/12/19 Admission Dx/Problem (Free Text): Admission Diagnosis/Problem Admission Diagnosis/Problem Aspiration Pneumonia, sepsis Subjective Update: This is a 73-year-old man with medical history of Parkinson disease. The patient was recently admitted at [facility] because of pneumonia and was discharged about one month ago. For the past 3-4 days patient has been having intermittent fevers sometimes associated with chills and rigors. He has also been coughing but has difficulty expectorating. He has been weak to the point that he had he gets out of bed. Has not been ambulatory since his last discharge from the hospital. He presented to the ED on 11/10 for evaluation of recurrent fever . He was admitted for possible aspiration pneumonia with sepsis. He was started on empiric abx. Today patient was een in the company of spouse. His unable to provide history. He was sleeping and does not want to be bordered. Spouse reports patient overall condition has been declining. Patient hardly talks this days and his intake has been poor. The spouse says patient will hold pocket food in his mouth for along time and eventually spit it out. I explained to her all thsi could be due to advance state of his Parkinson disease. Patient is open to have discussion with palliative care service. There was no reported fever, chills overnight. Patient has not had breakfast this morning. He has not waken up yet. Functional Status: Reports: Pain Controlled - Review of Systems General: Reports: Other (patient appears weak nad sleeping) HEENT: Reports: No Symptoms Pulmonary: Reports: Cough Cardiovascular: Reports: No Symptoms Gastrointestinal: Reports: No Symptoms Genitourinary: Reports: No Symptoms Musculoskeletal: Reports: No Symptoms Skin: Reports: No Symptoms Neurological: Reports: No Symptoms Psychiatric: Reports: No Symptoms - Patient Data Vitals - Most Recent: Last Vital Signs Temp 98.5 F 11/12/19 09:29 Pulse 64 11/12/19 09:29 Resp 14 11/12/19 09:29 BP 96/53 L 11/12/19 09:29 Pulse Ox 97 11/12/19 09:29 Weight - Most Recent: 142 lb 6.4 oz I&O - Last 24 Hours: Intake & Output 11/11/19 11/12/19 11/12/19 22:59 06:59 14:59 Intake Total 141 Balance 141 Lab Results Last 24 Hours: Laboratory Results - last 24 hr 11/11/19 11/11/19 11/11/19 Range/Units 20:29 20:29 20:29 WBC 14.0 H (5.0-10.0) 10^3/uL RBC 4.61 (4.6-6.2) 10^6/uL Hgb 12.9 L (14.0-18.0) g/dL Hct 40.6 (40.0-54.0) % MCV 88.1 D (80-100) fL MCH 28.0 (27.0-34.0) pg MCHC 31.8 L (33.0-35.0) g/dL Plt Count 317 (150-450) 10^3/uL Neut % (Auto) 87.0 H (42.2-75.2) % Lymph % (Auto) 4.4 L (20.5-50.1) % [place] % (Auto) 7.6 (2-8) % Eos % (Auto) 0.9 L (1.0-3.0) % Baso % (Auto) 0.1 (0.0-1.0) % Sodium 143 (136-145) mmol/L Potassium 4.3 (3.5-5.1) mmol/L Chloride 109 H (98-107) mmol/L Carbon Dioxide 30 (21-32) mmol/L Anion Gap 8.3 (7-13) mEq/L BUN 18 (7-18) mg/dL Creatinine 1.05 (0.70-1.30) mg/dL Est Cr Clr Drug Dosing TNP Estimated GFR (MDRD) > 60 BUN/Creatinine Ratio 17.1 (No establ ref range) Glucose 109 H (74-99) mg/dL Lactic Acid 2.1 H* (0.4-2.0) mmol/L Calcium 8.6 (8.5-10.1) mg/dL Total Bilirubin 1.5 H (0.2-1.0) mg/dL AST 17 (15-37) U/L ALT 21 (16-63) U/L Alkaline Phosphatase 57 (46-116) U/L Troponin I < 0.017 (0.000-0.056) ng/mL B-Natriuretic Peptide 54 (0-100) pg/ml Total Protein 6.6 (6.4-8.2) g/dL Albumin 2.9 L (3.4-5.0) g/dL Globulin 3.7 Albumin/Globulin Ratio 0.78 SARS-CoV-2 RNA (RT-PCR) (NEGATIVE) 11/11/19 11/12/19 11/12/19 Range/Units 21:48 01:35 06:16 WBC 16.4 H (5.0-10.0) 10^3/uL RBC 4.01 L (4.6-6.2) 10^6/uL Hgb 11.2 L D (14.0-18.0) g/dL Hct 35.5 L (40.0-54.0) % MCV 88.5 (80-100) fL MCH 27.9 (27.0-34.0) pg MCHC 31.5 L (33.0-35.0) g/dL Plt Count 284 (150-450) 10^3/uL Neut % (Auto) 75.4 H (42.2-75.2) % Lymph % (Auto) 13.3 L (20.5-50.1) % [place] % (Auto) 9.8 H (2-8) % Eos % (Auto) 1.3 (1.0-3.0) % Baso % (Auto) 0.2 (0.0-1.0) % Sodium (136-145) mmol/L Potassium (3.5-5.1) mmol/L Chloride (98-107) mmol/L Carbon Dioxide (21-32) mmol/L Anion Gap (7-13) mEq/L BUN (7-18) mg/dL Creatinine (0.70-1.30) mg/dL Est Cr Clr Drug Dosing Estimated GFR (MDRD) BUN/Creatinine Ratio (No establ ref range) Glucose (74-99) mg/dL Lactic Acid 0.8 (0.4-2.0) mmol/L Calcium (8.5-10.1) mg/dL Total Bilirubin (0.2-1.0) mg/dL AST (15-37) U/L ALT (16-63) U/L Alkaline Phosphatase (46-116) U/L Troponin I (0.000-0.056) ng/mL B-Natriuretic Peptide (0-100) pg/ml Total Protein (6.4-8.2) g/dL Albumin (3.4-5.0) g/dL Globulin Albumin/Globulin Ratio SARS-CoV-2 RNA (RT-PCR) Negative (NEGATIVE) 11/12/19 Range/Units 06:16 WBC (5.0-10.0) 10^3/uL RBC (4.6-6.2) 10^6/uL Hgb (14.0-18.0) g/dL Hct (40.0-54.0) % MCV (80-100) fL MCH (27.0-34.0) pg MCHC (33.0-35.0) g/dL Plt Count (150-450) 10^3/uL Neut % (Auto) (42.2-75.2) % Lymph % (Auto) (20.5-50.1) % [place] % (Auto) (2-8) % Eos % (Auto) (1.0-3.0) % Baso % (Auto) (0.0-1.0) % Sodium 145 (136-145) mmol/L Potassium 4.1 (3.5-5.1) mmol/L Chloride 110 H (98-107) mmol/L Carbon Dioxide 28 (21-32) mmol/L Anion Gap 11.1 (7-13) mEq/L BUN 19 H (7-18) mg/dL Creatinine 1.10 (0.70-1.30) mg/dL Est Cr Clr Drug Dosing 56.27 Estimated GFR (MDRD) > 60 BUN/Creatinine Ratio (No establ ref range) Glucose 96 (74-99) mg/dL Lactic Acid (0.4-2.0) mmol/L Calcium 8.2 L (8.5-10.1) mg/dL Total Bilirubin (0.2-1.0) mg/dL AST (15-37) U/L ALT (16-63) U/L Alkaline Phosphatase (46-116) U/L Troponin I (0.000-0.056) ng/mL B-Natriuretic Peptide (0-100) pg/ml Total Protein (6.4-8.2) g/dL Albumin (3.4-5.0) g/dL Globulin Albumin/Globulin Ratio SARS-CoV-2 RNA (RT-PCR) (NEGATIVE) Tomi Results Last 24 Hours: Microbiology 11/11/19 20:29 Anaerobic Blood Culture - Final Blood Med Orders - Current: Current Medications Acetaminophen (Tylenol) 650 mg PO Q4H PRN PRN Reason: Pain (Mild 1-3)/fever Carbidopa/Levodopa (Sinemet 25-250 Mg) 0.5 tab PO BIDMEALS [facility] Last Admin: 11/12/19 09:47 Dose: Not Given Documented by: Carbidopa/Levodopa (Sinemet 25-250 Mg) 1 tab PO BEDTIME [facility] Enoxaparin Sodium (Lovenox) 40 mg SUBCUT DAILY [facility] Last Admin: 11/12/19 09:48 Dose: 40 mg Documented by: Sodium Chloride (Normal Saline) 1,000 mls @ 125 mls/hr IV ASDIRECTED [facility] Last Admin: 11/11/19 23:55 Dose: 125 mls/hr Documented by: Ceftriaxone Sodium 1 gm/ (Sodium Chloride) 50 mls @ 100 mls/hr IV Q24H [facility] Metronidazole 500 mg/ Premix 100 mls @ 100 mls/hr IV Q8HR [facility] Azithromycin 500 mg/ Sodium (Chloride) 250 mls @ 250 mls/hr IV DAILY@1800 [facility] Ondansetron HCl (Zofran) 4 mg IVPUSH Q6H PRN PRN Reason: Nausea/Vomiting Discontinued Medications Ceftriaxone Sodium 1 gm/ (Sodium Chloride) 50 mls @ 100 mls/hr IV ONETIME ONE Stop: 11/11/19 22:56 Last Admin: 11/11/19 22:46 Dose: 100 mls/hr Documented by: Azithromycin 500 mg/ Sodium (Chloride) 250 mls @ 250 mls/hr IV Q24H [facility] Last Admin: 11/11/19 23:55 Dose: 250 mls/hr Documented by: Metronidazole 500 mg/ Premix 100 mls @ 100 mls/hr IV Q8H [facility] Last Admin: 11/12/19 08:57 Dose: 100 mls/hr Documented by: - Exam Quality Assessment: Supplemental Oxygen, DVT Prophylaxis General: Lethargic, Other (sleeping) HEENT: Pupils Equal, Pupils Reactive, EOMI, Mucous Membr. Moist/[place] Neck: Supple Lungs: Clear to Auscultation, Normal Respiratory Effort Cardiovascular: Regular Rate, Regular Rhythm GI/Abdominal Exam: Normal Bowel Sounds, Soft, Non-Tender, No Organomegaly, No Distention, No Abnormal Bruit, No Mass, Pelvis Stable (Male) Exam: No Hernia, Normal Inspection, Normal Prostate, Circumcised Back Exam: Normal Inspection, Full Range of Motion Extremities: Normal Inspection, Normal Range of Motion, Non-Tender, No Pedal Edema, Normal Capillary Refill Skin: Warm, Dry, Intact Wound/Incisions: Healing Well Neurological: No New Focal Deficit Psy/Mental Status: Alert, Normal Affect, Normal Mood, Other Sepsis Event Note - Evaluation Sepsis Screening Result: Severe Sepsis Risk - Focused Exam Vital Signs: Vital Signs Temp Pulse Resp BP BP Pulse Ox 11/12/19 09:29 98.5 F 64 14 96/53 L 97 11/12/19 04:00 98.8 F 74 16 90/56 L 94 L 11/11/19 22:49 99.6 F 82 18 87/49 L 95/60 94 L Date Exam was Performed: 11/12/19 Time Exam was Performed: 10:18 - Problem List & Annotations (1) Aspiration pneumonia SNOMED Code(s): 621481508 Code(s): J69.0 - PNEUMONITIS DUE TO INHALATION OF FOOD AND VOMIT Status: Acute Current Visit: Yes (2) Sepsis SNOMED Code(s): 07990999 Code(s): A41.9 - SEPSIS, UNSPECIFIED ORGANISM Status: Acute Current Visit: Yes (3) Generalized weakness SNOMED Code(s): 15596998 Code(s): R53.1 - WEAKNESS Status: Acute Current Visit: No (4) Parkinsons SNOMED Code(s): 87841916 Code(s): G20 - PARKINSON'S DISEASE Status: Acute Current Visit: No (5) Pneumonia SNOMED Code(s): 733151003 Code(s): J18.9 - PNEUMONIA, UNSPECIFIED ORGANISM Status: Acute Priority: High Current Visit: No Qualifiers: Pneumonia type: due to unspecified organism Laterality: right Lung location: middle lobe of lung Qualified Code(s): J18.9 - Pneumonia, unspecified organism - Problem List Review Problem List Initiated/Reviewed/Updated: Yes - Plan Plan:: #. Probable sepsis due to aspiration pneumonia -Continue current abx -IVF with 5% destrose in N/S @ 75 cc/h #. Probable aspiration Pneumonia -Patient's indicates that he sometimes pockets food in his mouth. Coughs sometimes when he eats. -Recently had a swallow study during his admission one month ago in [place] -Continue current abx #. Parkinson's disease -Appears to be getting worse -Has not been ambulatory lately -Continue current medications #General diet #Code Status -Had discussion with spouse and will want patient be DNR/DNI -il consult palliative care service
[2019-11-12] MEDS: Dextrose 5%-0.9% NaCl 1,000 ML IV SCH (11:21)
[2019-11-12] MEDS: metroNIDAZOLE/Normal Saline 500 MG in Premix Bag 1 BAG IV SCH ×2 (14:48→22:04)
[2019-11-12] MEDS ORDERED: Azithromycin 500 MG in Sodium Chloride 0.9% 250 ML IV SCH (18:00)
[2019-11-12] MEDS: cefTRIAXone 1 GM in Sodium Chloride 0.9% 50 ML IV SCH (21:14)
[2019-11-13] MEDS: Dextrose 5%-0.9% NaCl 1,000 ML IV SCH ×2 (03:14→18:34)
[2019-11-13] MEDS: metroNIDAZOLE/Normal Saline 500 MG in Premix Bag 1 BAG IV SCH ×3 (06:02→22:00)
[2019-11-13 06:50] LABS: ANION GAP 10.6 mEq/L (7-13); CHLORIDE,CL 111 mmol/L (98-107); SODIUM,NA 144 mmol/L (136-145)
--- NOTE | 2019-11-13 08:22 | PCM.PN ---
- General Info Date of Service: 11/13/19 Admission Dx/Problem (Free Text): Admission Diagnosis/Problem Admission Diagnosis/Problem Aspiration Pneumonia, sepsis Subjective Update: This is a 73-year-old man with medical history of Parkinson disease. The patient was recently admitted at [facility] because of pneumonia and was discharged about one month ago. For the past 3-4 days patient has been having intermittent fevers sometimes associated with chills and rigors. He has also been coughing but has difficulty expectorating. He has been weak to the point that he had he gets out of bed. Has not been ambulatory since his last discharge from the hospital. He presented to the ED on 11/10 for evaluation of recurrent fever . He was admitted for possible aspiration pneumonia with sepsis. He was started on empiric abx. Today patient was seen in the company of spouse. His unable to provide history. He was sleeping and does not want to be bordered. Spouse reports patient overall condition has been declining. Patient hardly talks this days and his intake has been poor. The spouse says patient will hold pocket food in his mouth for along time and eventually spit it out. I explained to her all thsi could be due to advance state of his Parkinson disease. Patient is open to have discussion with palliative care service. There was no reported fever, chills overnight. Patient has not had breakfast this morning. He has not waken up yet. - Patient Data Vitals - Most Recent: Last Vital Signs Temp 98.6 F 11/13/19 00:00 Pulse 68 11/13/19 00:00 Resp 20 11/13/19 00:00 BP 94/56 L 11/13/19 00:00 Pulse Ox 97 11/13/19 00:00 Weight - Most Recent: 143 lb 8 oz I&O - Last 24 Hours: Intake & Output 11/12/19 11/13/19 11/13/19 22:59 06:59 14:59 Intake Total 200 1150 Balance 200 1150 Lab Results Last 24 Hours: Laboratory Results - last 24 hr 11/12/19 11/13/19 11/13/19 Range/Units 13:15 06:15 06:15 WBC 9.6 (5.0-10.0) 10^3/uL RBC 3.57 L (4.6-6.2) 10^6/uL Hgb 10.2 L (14.0-18.0) g/dL Hct 31.9 L (40.0-54.0) % MCV 89.4 (80-100) fL MCH 28.6 (27.0-34.0) pg MCHC 32.0 L (33.0-35.0) g/dL Plt Count 267 (150-450) 10^3/uL Sodium 144 (136-145) mmol/L Potassium 3.6 (3.5-5.1) mmol/L Chloride 111 H (98-107) mmol/L Carbon Dioxide 26 (21-32) mmol/L Anion Gap 10.6 (7-13) mEq/L BUN 15 (7-18) mg/dL Creatinine 0.86 (0.70-1.30) mg/dL Est Cr Clr Drug Dosing 72.53 mL/min Estimated GFR (MDRD) > 60 Glucose 129 H (74-99) mg/dL Calcium 7.7 L (8.5-10.1) mg/dL Phosphorus 2.3 L (2.6-4.7) mg/dL Magnesium 1.8 (1.8-2.4) mg/dL Urine Color Dark yellow (YELLOW) Urine Appearance Slightly cloudy (CLEAR) Urine pH 6.5 (5.0-9.0) Ur Specific [place] 1.025 (1.005-1.030) Urine Protein Trace H (NEGATIVE) Urine Glucose (UA) Negative (NEGATIVE) Urine Ketones Negative (NEGATIVE) Urine Occult Blood Trace-intact H (NEGATIVE) Urine Nitrite Positive H (NEGATIVE) Urine Bilirubin Negative (NEGATIVE) Urine Urobilinogen 1.0 (0.2-1.0) mg/dL Ur Leukocyte Esterase Small H (NEGATIVE) Urine RBC 0-5 /HPF Urine WBC 20-30 H (0-5/HPF) /HPF Ur Epithelial Cells Rare (NOT SEEN) /HPF Urine Bacteria Few (0-FEW/HPF) /HPF Urine Mucus Moderate H (NOT SEEN) /LPF Tomi Results Last 24 Hours: Microbiology 11/11/19 20:29 Aerobic Blood Culture - Preliminary Blood NO GROWTH AFTER 1 DAY Anaerobic Blood Culture - Final Med Orders - Current: Current Medications Acetaminophen (Tylenol) 650 mg PO Q4H PRN PRN Reason: Pain (Mild 1-3)/fever Carbidopa/Levodopa (Sinemet 25-250 Mg) 0.5 tab PO BIDMEALS [facility] Last Admin: 11/12/19 19:04 Dose: Not Given Documented by: Carbidopa/Levodopa (Sinemet 25-250 Mg) 1 tab PO BEDTIME [facility] Last Admin: 11/12/19 21:14 Dose: Not Given Documented by: Enoxaparin Sodium (Lovenox) 40 mg SUBCUT DAILY [facility] Last Admin: 11/12/19 09:48 Dose: 40 mg Documented by: Ceftriaxone Sodium 1 gm/ (Sodium Chloride) 50 mls @ 100 mls/hr IV Q24H [facility] Last Admin: 11/12/19 21:14 Dose: 100 mls/hr Documented by: Metronidazole 500 mg/ Premix 100 mls @ 100 mls/hr IV Q8HR [facility] Last Admin: 11/13/19 06:02 Dose: 100 mls/hr Documented by: Dextrose/Sodium Chloride (Dextrose 5%-Normal Saline) 1,000 mls @ 75 mls/hr IV ASDIRECTED [facility] Last Admin: 11/13/19 03:14 Dose: 75 mls/hr Documented by: Ondansetron HCl (Zofran) 4 mg IVPUSH Q6H PRN PRN Reason: Nausea/Vomiting Discontinued Medications Ceftriaxone Sodium 1 gm/ (Sodium Chloride) 50 mls @ 100 mls/hr IV ONETIME ONE Stop: 11/11/19 22:56 Last Admin: 11/11/19 22:46 Dose: 100 mls/hr Documented by: Sodium Chloride (Normal Saline) 1,000 mls @ 125 mls/hr IV ASDIRECTED [facility] Last Infusion: 11/12/19 11:21 Dose: Infused Documented by: Azithromycin 500 mg/ Sodium (Chloride) 250 mls @ 250 mls/hr IV Q24H [facility] Last Admin: 11/11/19 23:55 Dose: 250 mls/hr Documented by: Metronidazole 500 mg/ Premix 100 mls @ 100 mls/hr IV Q8H [facility] Last Admin: 11/12/19 08:57 Dose: 100 mls/hr Documented by: Azithromycin 500 mg/ Sodium (Chloride) 250 mls @ 250 mls/hr IV DAILY@1800 [facility] Sepsis Event Note - Evaluation Sepsis Screening Result: No Definite Risk - Focused Exam Vital Signs: Vital Signs Temp Pulse Resp BP Pulse Ox 11/13/19 00:00 98.6 F 68 20 94/56 L 97 Date Exam was Performed: 11/16/19 Time Exam was Performed: 10:07 - Problem List & Annotations (1) Aspiration pneumonia SNOMED Code(s): 852426073 Code(s): J69.0 - PNEUMONITIS DUE TO INHALATION OF FOOD AND VOMIT Status: Acute Current Visit: Yes (2) Sepsis SNOMED Code(s): 93803175 Code(s): A41.9 - SEPSIS, UNSPECIFIED ORGANISM Status: Acute Current Visit: Yes (3) Generalized weakness SNOMED Code(s): 90108528 Code(s): R53.1 - WEAKNESS Status: Acute Current Visit: No (4) Parkinsons SNOMED Code(s): 85937776 Code(s): G20 - PARKINSON'S DISEASE Status: Acute Current Visit: No (5) Pneumonia SNOMED Code(s): 279244883 Code(s): J18.9 - PNEUMONIA, UNSPECIFIED ORGANISM Status: Acute Priority: High Current Visit: No Qualifiers: Pneumonia type: due to unspecified organism Laterality: right Lung location: middle lobe of lung Qualified Code(s): J18.9 - Pneumonia, unspecified organism - My Orders Last 24 Hours: My Active Orders 11/12/19 10:33 Resuscitation Status Routine 11/12/19 10:44 Consult to Palliative Care [CONS] Routine 11/12/19 10:45 Dextrose 5%-0.9% NaCl [Dextrose 5%-Normal Saline] 1,000 ml IV ASDIRECTED 11/13/19 10:00 Dietary Supplements [RC] TIDAC 11/14/19 07:00 BASIC METABOLIC PANEL,BMP [CHEM] DAILY CBC W/O DIFF,HEMOGRAM [HEME] DAILY MAGNESIUM [CHEM] DAILY PHOSPHORUS [CHEM] DAILY 11/15/19 07:00 BASIC METABOLIC PANEL,BMP [CHEM] DAILY CBC W/O DIFF,HEMOGRAM [HEME] DAILY MAGNESIUM [CHEM] DAILY PHOSPHORUS [CHEM] DAILY - Plan Plan:: #. Probable sepsis due to aspiration pneumonia -Continue current abx -IVF with 5% destrose in N/S @ 75 cc/h #. Probable aspiration Pneumonia -Patient's indicates that he sometimes pockets food in his mouth. Coughs sometimes when he eats. -Recently had a swallow study during his admission one month ago in [place] -Continue current abx #. Parkinson's disease -Appears to be getting worse -Has not been ambulatory lately -Continue current medications #General diet #Code Status -Had discussion with spouse and will want patient be DNR/DNI -il consult palliative care service
--- NOTE | 2019-11-13 09:36 | PCM.PN ---
- General Info Date of Service: 11/13/19 Admission Dx/Problem (Free Text): Admission Diagnosis/Problem Admission Diagnosis/Problem Aspiration Pneumonia, sepsis Subjective Update: This is a 73-year-old man with medical history of Parkinson disease. The patient was recently admitted at [facility] because of pneumonia and was discharged about one month ago. For the past 3-4 days patient has been having intermittent fevers sometimes associated with chills and rigors. He has also been coughing but has difficulty expectorating. He has been weak to the point that he had he gets out of bed. Has not been ambulatory since his last discharge from the hospital. He presented to the ED on 11/10 for evaluation of recurrent fever . He was admitted for possible aspiration pneumonia with sepsis. He was started on empiric abx. Patient seen and examined today. He is awake this morning. Patient trying to have breakfast. He is non-verbal but comprehending. Looks better than yesterday. No overnight event. Functional Status: Reports: Pain Controlled - Review of Systems General: Reports: No Symptoms HEENT: Reports: No Symptoms Pulmonary: Reports: No Symptoms Cardiovascular: Reports: No Symptoms Gastrointestinal: Reports: No Symptoms Genitourinary: Reports: No Symptoms Musculoskeletal: Reports: No Symptoms Skin: Reports: No Symptoms Neurological: Reports: No Symptoms Psychiatric: Reports: No Symptoms - Patient Data Vitals - Most Recent: Last Vital Signs Temp 98.6 F 11/13/19 00:00 Pulse 68 11/13/19 00:00 Resp 20 11/13/19 00:00 BP 94/56 L 11/13/19 00:00 Pulse Ox 97 11/13/19 00:00 Weight - Most Recent: 143 lb 8 oz I&O - Last 24 Hours: Intake & Output 11/12/19 11/13/19 11/13/19 22:59 06:59 14:59 Intake Total 200 1150 Balance 200 1150 Lab Results Last 24 Hours: Laboratory Results - last 24 hr 11/12/19 11/13/19 11/13/19 Range/Units 13:15 06:15 06:15 WBC 9.6 (5.0-10.0) 10^3/uL RBC 3.57 L (4.6-6.2) 10^6/uL Hgb 10.2 L (14.0-18.0) g/dL Hct 31.9 L (40.0-54.0) % MCV 89.4 (80-100) fL MCH 28.6 (27.0-34.0) pg MCHC 32.0 L (33.0-35.0) g/dL Plt Count 267 (150-450) 10^3/uL Sodium 144 (136-145) mmol/L Potassium 3.6 (3.5-5.1) mmol/L Chloride 111 H (98-107) mmol/L Carbon Dioxide 26 (21-32) mmol/L Anion Gap 10.6 (7-13) mEq/L BUN 15 (7-18) mg/dL Creatinine 0.86 (0.70-1.30) mg/dL Est Cr Clr Drug Dosing 72.53 mL/min Estimated GFR (MDRD) > 60 Glucose 129 H (74-99) mg/dL Calcium 7.7 L (8.5-10.1) mg/dL Phosphorus 2.3 L (2.6-4.7) mg/dL Magnesium 1.8 (1.8-2.4) mg/dL Urine Color Dark yellow (YELLOW) Urine Appearance Slightly cloudy (CLEAR) Urine pH 6.5 (5.0-9.0) Ur Specific [place] 1.025 (1.005-1.030) Urine Protein Trace H (NEGATIVE) Urine Glucose (UA) Negative (NEGATIVE) Urine Ketones Negative (NEGATIVE) Urine Occult Blood Trace-intact H (NEGATIVE) Urine Nitrite Positive H (NEGATIVE) Urine Bilirubin Negative (NEGATIVE) Urine Urobilinogen 1.0 (0.2-1.0) mg/dL Ur Leukocyte Esterase Small H (NEGATIVE) Urine RBC 0-5 /HPF Urine WBC 20-30 H (0-5/HPF) /HPF Ur Epithelial Cells Rare (NOT SEEN) /HPF Urine Bacteria Few (0-FEW/HPF) /HPF Urine Mucus Moderate H (NOT SEEN) /LPF Tomi Results Last 24 Hours: Microbiology 11/11/19 20:29 Aerobic Blood Culture - Preliminary Blood NO GROWTH AFTER 1 DAY Anaerobic Blood Culture - Final Med Orders - Current: Current Medications Acetaminophen (Tylenol) 650 mg PO Q4H PRN PRN Reason: Pain (Mild 1-3)/fever Carbidopa/Levodopa (Sinemet 25-250 Mg) 0.5 tab PO BIDMEALS [facility] Last Admin: 11/12/19 19:04 Dose: Not Given Documented by: Carbidopa/Levodopa (Sinemet 25-250 Mg) 1 tab PO BEDTIME [facility] Last Admin: 11/12/19 21:14 Dose: Not Given Documented by: Enoxaparin Sodium (Lovenox) 40 mg SUBCUT DAILY [facility] Last Admin: 11/12/19 09:48 Dose: 40 mg Documented by: Ceftriaxone Sodium 1 gm/ (Sodium Chloride) 50 mls @ 100 mls/hr IV Q24H [facility] Last Admin: 11/12/19 21:14 Dose: 100 mls/hr Documented by: Metronidazole 500 mg/ Premix 100 mls @ 100 mls/hr IV Q8HR [facility] Last Admin: 11/13/19 06:02 Dose: 100 mls/hr Documented by: Dextrose/Sodium Chloride (Dextrose 5%-Normal Saline) 1,000 mls @ 75 mls/hr IV ASDIRECTED [facility] Last Admin: 11/13/19 03:14 Dose: 75 mls/hr Documented by: Ondansetron HCl (Zofran) 4 mg IVPUSH Q6H PRN PRN Reason: Nausea/Vomiting Discontinued Medications Ceftriaxone Sodium 1 gm/ (Sodium Chloride) 50 mls @ 100 mls/hr IV ONETIME ONE Stop: 11/11/19 22:56 Last Admin: 11/11/19 22:46 Dose: 100 mls/hr Documented by: Sodium Chloride (Normal Saline) 1,000 mls @ 125 mls/hr IV ASDIRECTED [facility] Last Infusion: 11/12/19 11:21 Dose: Infused Documented by: Azithromycin 500 mg/ Sodium (Chloride) 250 mls @ 250 mls/hr IV Q24H [facility] Last Admin: 11/11/19 23:55 Dose: 250 mls/hr Documented by: Metronidazole 500 mg/ Premix 100 mls @ 100 mls/hr IV Q8H [facility] Last Admin: 11/12/19 08:57 Dose: 100 mls/hr Documented by: Azithromycin 500 mg/ Sodium (Chloride) 250 mls @ 250 mls/hr IV DAILY@1800 [facility] - Exam Quality Assessment: Supplemental Oxygen, DVT Prophylaxis General: Alert, Oriented HEENT: Pupils Equal, Pupils Reactive, EOMI, Mucous Membr. Moist/[place] Neck: Supple Lungs: Clear to Auscultation, Normal Respiratory Effort Cardiovascular: Regular Rate, Regular Rhythm GI/Abdominal Exam: Normal Bowel Sounds, Soft, Non-Tender, No Organomegaly, No Distention, No Abnormal Bruit, No Mass, Pelvis Stable (Male) Exam: No Hernia, Normal Inspection, Normal Prostate, Circumcised Back Exam: Normal Inspection, Full Range of Motion Extremities: Normal Inspection, Normal Range of Motion, Non-Tender, No Pedal Edema, Normal Capillary Refill Skin: Warm, Dry, Intact Wound/Incisions: Healing Well Neurological: No New Focal Deficit Psy/Mental Status: Alert, Normal Affect, Normal Mood Sepsis Event Note - Evaluation Sepsis Screening Result: No Definite Risk - Focused Exam Vital Signs: Vital Signs Temp Pulse Resp BP Pulse Ox 11/13/19 00:00 98.6 F 68 20 94/56 L 97 Date Exam was Performed: 11/13/19 Time Exam was Performed: 09:32 - Problem List & Annotations (1) Aspiration pneumonia SNOMED Code(s): 459383523 Code(s): J69.0 - PNEUMONITIS DUE TO INHALATION OF FOOD AND VOMIT Status: Acute Current Visit: Yes (2) Sepsis SNOMED Code(s): 59312376 Code(s): A41.9 - SEPSIS, UNSPECIFIED ORGANISM Status: Acute Current Visit: Yes (3) Generalized weakness SNOMED Code(s): 04554684 Code(s): R53.1 - WEAKNESS Status: Acute Current Visit: No (4) Parkinsons SNOMED Code(s): 23544984 Code(s): G20 - PARKINSON'S DISEASE Status: Acute Current Visit: No (5) Pneumonia SNOMED Code(s): 377940453 Code(s): J18.9 - PNEUMONIA, UNSPECIFIED ORGANISM Status: Acute Priority: High Current Visit: No Qualifiers: Pneumonia type: due to unspecified organism Laterality: right Lung location: middle lobe of lung Qualified Code(s): J18.9 - Pneumonia, unspecified organism - Problem List Review Problem List Initiated/Reviewed/Updated: Yes - My Orders Last 24 Hours: My Active Orders 11/12/19 10:33 Resuscitation Status Routine 11/12/19 10:44 Consult to Palliative Care [CONS] Routine 11/12/19 10:45 Dextrose 5%-0.9% NaCl [Dextrose 5%-Normal Saline] 1,000 ml IV ASDIRECTED 11/13/19 10:00 Dietary Supplements [RC] TIDAC 11/14/19 07:00 BASIC METABOLIC PANEL,BMP [CHEM] DAILY CBC W/O DIFF,HEMOGRAM [HEME] DAILY MAGNESIUM [CHEM] DAILY PHOSPHORUS [CHEM] DAILY 11/15/19 07:00 BASIC METABOLIC PANEL,BMP [CHEM] DAILY CBC W/O DIFF,HEMOGRAM [HEME] DAILY MAGNESIUM [CHEM] DAILY PHOSPHORUS [CHEM] DAILY - Plan Plan:: #. Probable sepsis due to aspiration pneumonia -Continue current abx -IVF with 5% destrose in N/S @ 75 cc/h #. Probable aspiration Pneumonia -Patient's indicates that he sometimes pockets food in his mouth. Coughs sometimes when he eats. -Recently had a swallow study during his admission one month ago in [place] -Continue current abx #. Parkinson's disease -Appears to be getting worse -Has not been ambulatory lately -Continue current medications #General diet #Code Status -Had discussion with spouse and will want patient be DNR/DNI -Palliative care consulted
[2019-11-13] MEDS: Carbidopa/Levodopa 25-250 MG Tab PO SCH ×3 (11:20→21:03)
[2019-11-13] MEDS: Enoxaparin 40 MG/0.4 ML Syringe SUBCUT SCH (11:20)
[2019-11-13] MEDS: Phosphorus #1 250 MG Tab PO SCH ×3 (12:40→21:03)
[2019-11-13] MEDS: cefTRIAXone 1 GM in Sodium Chloride 0.9% 50 ML IV SCH (21:01)
[2019-11-14] MEDS: metroNIDAZOLE/Normal Saline 500 MG in Premix Bag 1 BAG IV SCH ×3 (05:48→22:39)
[2019-11-14 07:03] LABS: ANION GAP 9.6 mEq/L (7-13); CHLORIDE,CL 112 mmol/L (98-107); SODIUM,NA 144 mmol/L (136-145)
[2019-11-14] MEDS: Carbidopa/Levodopa 25-250 MG Tab PO SCH ×3 (07:51→21:30)
[2019-11-14] MEDS: Enoxaparin 40 MG/0.4 ML Syringe SUBCUT SCH (08:13)
[2019-11-14] MEDS: Phosphorus #1 250 MG Tab PO SCH ×3 (08:14→21:18)
[2019-11-14] MEDS: Dextrose 5%-0.9% NaCl 1,000 ML IV SCH (10:15)
--- NOTE | 2019-11-14 10:52 | PCM.PN ---
- General Info Date of Service: 11/14/19 Admission Dx/Problem (Free Text): Admission Diagnosis/Problem Admission Diagnosis/Problem Aspiration Pneumonia, sepsis Subjective Update: This is a 73-year-old man with medical history of Parkinson disease. The patient was recently admitted at [facility] because of pneumonia and was discharged about one month ago. For the past 3-4 days patient has been having intermittent fevers sometimes associated with chills and rigors. He has also been coughing but has difficulty expectorating. He has been weak to the point that he had he gets out of bed. Has not been ambulatory since his last discharge from the hospital. He presented to the ED on 11/10 for evaluation of recurrent fever . He was admitted for possible aspiration pneumonia with sepsis. He was started on empiric abx. Patient seen and examined today. He sleeping and not opening his eyes to name calling. He is non-verbal. Patient has not been doing well with feeding. family had a meeting and decided to hold off hospice care for now. Patient currently not doing ok and overall prognosis is poor. Had a discussion with spouse who agrees his prognosis is poor but they still want to give patient some weeks to see how he does. Labs reviewed. VSS. Functional Status: Reports: Pain Controlled - Review of Systems General: Reports: No Symptoms HEENT: Reports: No Symptoms Pulmonary: Reports: No Symptoms Cardiovascular: Reports: No Symptoms Gastrointestinal: Reports: No Symptoms Genitourinary: Reports: No Symptoms Musculoskeletal: Reports: No Symptoms Skin: Reports: No Symptoms Neurological: Reports: No Symptoms Psychiatric: Reports: No Symptoms - Patient Data Vitals - Most Recent: Last Vital Signs Temp 97.8 F 11/14/19 07:45 Pulse 63 11/14/19 07:45 Resp 18 11/14/19 07:45 BP 97/57 L 11/14/19 07:45 Pulse Ox 96 11/14/19 07:45 Weight - Most Recent: 146 lb 12.8 oz I&O - Last 24 Hours: Intake & Output 11/13/19 11/14/19 11/14/19 22:59 06:59 14:59 Intake Total 50 1915 20 Balance 50 191 20 Lab Results Last 24 Hours: Laboratory Results - last 24 hr 11/14/19 11/14/19 Range/Units 06:05 06:05 WBC 8.9 (5.0-10.0) 10^3/uL RBC 3.68 L (4.6-6.2) 10^6/uL Hgb 10.5 L (14.0-18.0) g/dL Hct 32.6 L (40.0-54.0) % MCV 88.6 (80-100) fL MCH 28.5 (27.0-34.0) pg MCHC 32.2 L (33.0-35.0) g/dL Plt Count 294 (150-450) 10^3/uL Sodium 144 (136-145) mmol/L Potassium 3.6 (3.5-5.1) mmol/L Chloride 112 H (98-107) mmol/L Carbon Dioxide 26 (21-32) mmol/L Anion Gap 9.6 (7-13) mEq/L BUN 11 (7-18) mg/dL Creatinine 0.88 (0.70-1.30) mg/dL Est Cr Clr Drug Dosing 71.46 mL/min Estimated GFR (MDRD) > 60 Glucose 113 H (74-99) mg/dL Calcium 8.0 L (8.5-10.1) mg/dL Phosphorus 2.8 (2.6-4.7) mg/dL Magnesium 1.9 (1.8-2.4) mg/dL Tomi Results Last 24 Hours: Microbiology 11/11/19 20:29 Aerobic Blood Culture - Preliminary Blood NO GROWTH AFTER 2 DAYS Anaerobic Blood Culture - Final Med Orders - Current: Current Medications Acetaminophen (Tylenol) 650 mg PO Q4H PRN PRN Reason: Pain (Mild 1-3)/fever Carbidopa/Levodopa (Sinemet 25-250 Mg) 0.5 tab PO BIDMEALS [facility] Last Admin: 11/14/19 07:51 Dose: Not Given Documented by: Carbidopa/Levodopa (Sinemet 25-250 Mg) 1 tab PO BEDTIME [facility] Last Admin: 11/13/19 21:03 Dose: Not Given Documented by: Enoxaparin Sodium (Lovenox) 40 mg SUBCUT DAILY [facility] Last Admin: 11/14/19 08:13 Dose: Not Given Documented by: Ceftriaxone Sodium 1 gm/ (Sodium Chloride) 50 mls @ 100 mls/hr IV Q24H [facility] Last Infusion: 11/13/19 21:33 Dose: Infused Documented by: Metronidazole 500 mg/ Premix 100 mls @ 100 mls/hr IV Q8HR [facility] Last Infusion: 11/14/19 06:50 Dose: Infused Documented by: Dextrose/Sodium Chloride (Dextrose 5%-Normal Saline) 1,000 mls @ 75 mls/hr IV ASDIRECTED [facility] Last Admin: 11/14/19 10:15 Dose: 75 mls/hr Documented by: Ondansetron HCl (Zofran) 4 mg IVPUSH Q6H PRN PRN Reason: Nausea/Vomiting Sodium Phosphate (Neutra-Phos) 250 mg PO TID [facility] Last Admin: 11/14/19 08:14 Dose: Not Given Documented by: Discontinued Medications Ceftriaxone Sodium 1 gm/ (Sodium Chloride) 50 mls @ 100 mls/hr IV ONETIME ONE Stop: 11/11/19 22:56 Last Admin: 11/11/19 22:46 Dose: 100 mls/hr Documented by: Sodium Chloride (Normal Saline) 1,000 mls @ 125 mls/hr IV ASDIRECTED [facility] Last Infusion: 11/12/19 11:21 Dose: Infused Documented by: Azithromycin 500 mg/ Sodium (Chloride) 250 mls @ 250 mls/hr IV Q24H [facility] Last Admin: 11/11/19 23:55 Dose: 250 mls/hr Documented by: Metronidazole 500 mg/ Premix 100 mls @ 100 mls/hr IV Q8H [facility] Last Admin: 11/12/19 08:57 Dose: 100 mls/hr Documented by: Azithromycin 500 mg/ Sodium (Chloride) 250 mls @ 250 mls/hr IV DAILY@1800 [facility] - Exam General: Alert, Oriented HEENT: Pupils Equal, Pupils Reactive, EOMI, Mucous Membr. Moist/[place] Neck: Supple Lungs: Clear to Auscultation, Normal Respiratory Effort Cardiovascular: Regular Rate, Regular Rhythm GI/Abdominal Exam: Normal Bowel Sounds, Soft, Non-Tender, No Organomegaly, No Distention, No Abnormal Bruit, No Mass, Pelvis Stable (Male) Exam: No Hernia, Normal Inspection, Normal Prostate, Circumcised Back Exam: Normal Inspection, Full Range of Motion Extremities: Normal Inspection, Normal Range of Motion, Non-Tender, No Pedal Edema, Normal Capillary Refill Skin: Warm, Dry, Intact Wound/Incisions: Healing Well Neurological: No New Focal Deficit Psy/Mental Status: Alert, Normal Affect, Normal Mood Sepsis Event Note - Evaluation Sepsis Screening Result: No Definite Risk - Focused Exam Vital Signs: Vital Signs Temp Pulse Resp BP Pulse Ox Pulse Ox 11/14/19 07:45 97.8 F 63 18 97/57 L 96 11/14/19 03:36 98.2 F 11/14/19 00:10 98.3 F 63 18 96 11/13/19 22:49 90 L Date Exam was Performed: 11/14/19 Time Exam was Performed: 10:47 - Problem List & Annotations (1) Aspiration pneumonia SNOMED Code(s): 252198869 Code(s): J69.0 - PNEUMONITIS DUE TO INHALATION OF FOOD AND VOMIT Status: Acute Current Visit: Yes (2) Sepsis SNOMED Code(s): 97179972 Code(s): A41.9 - SEPSIS, UNSPECIFIED ORGANISM Status: Acute Current Visit: Yes (3) Generalized weakness SNOMED Code(s): 57134975 Code(s): R53.1 - WEAKNESS Status: Acute Current Visit: No (4) Parkinsons SNOMED Code(s): 36379662 Code(s): G20 - PARKINSON'S DISEASE Status: Acute Current Visit: No (5) Pneumonia SNOMED Code(s): 440168289 Code(s): J18.9 - PNEUMONIA, UNSPECIFIED ORGANISM Status: Acute Priority: High Current Visit: No Qualifiers: Pneumonia type: due to unspecified organism Laterality: right Lung location: middle lobe of lung Qualified Code(s): J18.9 - Pneumonia, unspecified organism (6) Malnutrition SNOMED Code(s): 89561619 Code(s): E46 - UNSPECIFIED PROTEIN-CALORIE MALNUTRITION Status: Acute Current Visit: Yes - Problem List Review Problem List Initiated/Reviewed/Updated: Yes - My Orders Last 24 Hours: My Active Orders 11/13/19 10:00 Dietary Supplements [RC] TIDAC 11/15/19 07:00 BASIC METABOLIC PANEL,BMP [CHEM] DAILY CBC W/O DIFF,HEMOGRAM [HEME] DAILY MAGNESIUM [CHEM] DAILY PHOSPHORUS [CHEM] DAILY - Plan Plan:: #. Probable sepsis due to aspiration pneumonia -Continue current abx -IVF with 5% dextrose in N/S @ 75 cc/h #. Probable aspiration Pneumonia -Patient's indicates that he sometimes pockets food in his mouth. Coughs sometimes when he eats. -Recently had a swallow study during his admission one month ago in [place] -Continue current abx #. Parkinson's disease -Appears to be getting worse -Has not been ambulatory lately -Continue current medications #Malnutrition due to advance Parkinson's disease -Nutritional supplement with ensure #General diet #Code Status -Had discussion with spouse and will want patient be DNR/DNI -Palliative care consulted
[2019-11-14] MEDS: cefTRIAXone 1 GM in Sodium Chloride 0.9% 50 ML IV SCH (21:20)
[2019-11-15] MEDS: Dextrose 5%-0.9% NaCl 1,000 ML IV SCH (02:18)
[2019-11-15] MEDS: metroNIDAZOLE/Normal Saline 500 MG in Premix Bag 1 BAG IV SCH ×3 (05:45→21:42)
[2019-11-15 08:22] LABS: ANION GAP 10.4 mEq/L (7-13); CHLORIDE,CL 110 mmol/L (98-107); SODIUM,NA 143 mmol/L (136-145)
[2019-11-15] MEDS ORDERED: Magnesium Sulfate/Water 2 GM in Premix Bag 1 BAG IV ONE (09:50)
[2019-11-15] MEDS: Carbidopa/Levodopa 25-250 MG Tab PO SCH ×3 (10:52→21:43)
[2019-11-15] MEDS: Enoxaparin 40 MG/0.4 ML Syringe SUBCUT SCH (10:53)
[2019-11-15] MEDS: Phosphorus #1 250 MG Tab PO SCH ×3 (10:53→21:43)
--- NOTE | 2019-11-15 14:38 | PCM.PN ---
- General Info Date of Service: 11/15/19 Admission Dx/Problem (Free Text): Admission Diagnosis/Problem Admission Diagnosis/Problem Aspiration Pneumonia, sepsis Subjective Update: This is a 73-year-old man with medical history of Parkinson disease. The patient was recently admitted at [facility] because of pneumonia and was discharged about one month ago. For the past 3-4 days patient has been having intermittent fevers sometimes associated with chills and rigors. He has also been coughing but has difficulty expectorating. He has been weak to the point that he had he gets out of bed. Has not been ambulatory since his last discharge from the hospital. He presented to the ED on 11/10 for evaluation of recurrent fever . He was admitted for possible aspiration pneumonia with sepsis. He was started on empiric abx. Patient seen and examined today in the company of . He clinical condition remain the same. He was sleepy most part of the morning woke up in the afternoon. He is non-verbal and unable to provide history. tried to feed him but just took a little bite. I discussed again with spouse about home hospice and she wants to take a look at it again. She says maybe tomorrow she might allow discharge home on hospice. Labs reviewed. VSS. Functional Status: Reports: Pain Controlled - Review of Systems General: Reports: No Symptoms, Other HEENT: Reports: No Symptoms Pulmonary: Reports: No Symptoms Cardiovascular: Reports: No Symptoms Gastrointestinal: Reports: No Symptoms Genitourinary: Reports: No Symptoms Musculoskeletal: Reports: No Symptoms Skin: Reports: No Symptoms Neurological: Reports: No Symptoms Psychiatric: Reports: No Symptoms - Patient Data Vitals - Most Recent: Last Vital Signs Temp 98.1 F 11/15/19 11:41 Pulse 53 L 11/15/19 11:41 Resp 18 11/15/19 11:41 BP 89/69 L 11/15/19 11:41 Pulse Ox 96 11/15/19 11:41 Weight - Most Recent: 150 lb 12.8 oz I&O - Last 24 Hours: Intake & Output 11/14/19 11/15/19 11/15/19 22:59 06:59 14:59 Intake Total 382 50 Balance 382 50 Lab Results Last 24 Hours: Laboratory Results - last 24 hr 11/15/19 11/15/19 Range/Units 07:55 07:55 WBC 8.6 (5.0-10.0) 10^3/uL RBC 3.60 L (4.6-6.2) 10^6/uL Hgb 10.1 L (14.0-18.0) g/dL Hct 31.9 L (40.0-54.0) % MCV 88.6 (80-100) fL MCH 28.1 (27.0-34.0) pg MCHC 31.7 L (33.0-35.0) g/dL Plt Count 291 (150-450) 10^3/uL Sodium 143 (136-145) mmol/L Potassium 3.4 L (3.5-5.1) mmol/L Chloride 110 H (98-107) mmol/L Carbon Dioxide 26 (21-32) mmol/L Anion Gap 10.4 (7-13) mEq/L BUN 11 (7-18) mg/dL Creatinine 0.75 (0.70-1.30) mg/dL Est Cr Clr Drug Dosing 83.85 mL/min Estimated GFR (MDRD) > 60 Glucose 106 H (74-99) mg/dL Calcium 7.6 L (8.5-10.1) mg/dL Phosphorus 2.5 L (2.6-4.7) mg/dL Magnesium 1.7 L (1.8-2.4) mg/dL Tomi Results Last 24 Hours: Microbiology 11/11/19 20:29 Aerobic Blood Culture - Preliminary Blood NO GROWTH AFTER 3 DAYS Anaerobic Blood Culture - Final Med Orders - Current: Current Medications Acetaminophen (Tylenol) 650 mg PO Q4H PRN PRN Reason: Pain (Mild 1-3)/fever Carbidopa/Levodopa (Sinemet 25-250 Mg) 0.5 tab PO BIDMEALS [facility] Last Admin: 11/15/19 10:52 Dose: Not Given Documented by: Carbidopa/Levodopa (Sinemet 25-250 Mg) 1 tab PO BEDTIME [facility] Last Admin: 11/14/19 21:30 Dose: Not Given Documented by: Enoxaparin Sodium (Lovenox) 40 mg SUBCUT DAILY [facility] Last Admin: 11/15/19 10:53 Dose: Not Given Documented by: Ceftriaxone Sodium 1 gm/ (Sodium Chloride) 50 mls @ 100 mls/hr IV Q24H [facility] Last Admin: 06/26/20 21:20 Dose: 100 mls/hr Documented by: Metronidazole 500 mg/ Premix 100 mls @ 100 mls/hr IV Q8HR [facility] Last Infusion: 11/15/19 06:45 Dose: Infused Documented by: Dextrose/Sodium Chloride (Dextrose 5%-Normal Saline) 1,000 mls @ 75 mls/hr IV ASDIRECTED [facility] Last Admin: 11/15/19 02:18 Dose: 75 mls/hr Documented by: Ondansetron HCl (Zofran) 4 mg IVPUSH Q6H PRN PRN Reason: Nausea/Vomiting Sodium Phosphate (Neutra-Phos) 250 mg PO TID [facility] Last Admin: 11/15/19 10:53 Dose: Not Given Documented by: Discontinued Medications Ceftriaxone Sodium 1 gm/ (Sodium Chloride) 50 mls @ 100 mls/hr IV ONETIME ONE Stop: 11/11/19 22:56 Last Admin: 11/11/19 22:46 Dose: 100 mls/hr Documented by: Sodium Chloride (Normal Saline) 1,000 mls @ 125 mls/hr IV ASDIRECTED [facility] Last Infusion: 11/12/19 11:21 Dose: Infused Documented by: Azithromycin 500 mg/ Sodium (Chloride) 250 mls @ 250 mls/hr IV Q24H [facility] Last Admin: 11/11/19 23:55 Dose: 250 mls/hr Documented by: Metronidazole 500 mg/ Premix 100 mls @ 100 mls/hr IV Q8H [facility] Last Admin: 11/12/19 08:57 Dose: 100 mls/hr Documented by: Azithromycin 500 mg/ Sodium (Chloride) 250 mls @ 250 mls/hr IV DAILY@1800 [facility] Magnesium Sulfate 2 gm/ Premix 50 mls @ 25 mls/hr IV ONETIME ONE Stop: 11/15/19 11:49 Last Infusion: 11/15/19 12:15 Dose: Infused Documented by: - Exam Quality Assessment: DVT Prophylaxis General: Alert, Oriented HEENT: Pupils Equal, Pupils Reactive, EOMI, Mucous Membr. Moist/[place] Neck: Supple Lungs: Clear to Auscultation, Normal Respiratory Effort Cardiovascular: Regular Rate, Regular Rhythm GI/Abdominal Exam: Normal Bowel Sounds, Soft, Non-Tender, No Organomegaly, No Distention, No Abnormal Bruit, No Mass, Pelvis Stable (Male) Exam: No Hernia, Normal Inspection, Normal Prostate, Circumcised Back Exam: Normal Inspection, Full Range of Motion Extremities: Normal Inspection, Normal Range of Motion, Non-Tender, No Pedal Edema, Normal Capillary Refill Skin: Warm, Dry, Intact Wound/Incisions: Healing Well Neurological: No New Focal Deficit Psy/Mental Status: Alert, Normal Affect, Normal Mood Sepsis Event Note - Evaluation Sepsis Screening Result: No Definite Risk - Focused Exam Vital Signs: Vital Signs Temp Pulse Resp BP BP Pulse Ox 11/15/19 11:41 98.1 F 53 L 18 89/69 L 96 11/15/19 08:00 98.3 F 65 18 109/54 L 97 Date Exam was Performed: 11/15/19 Time Exam was Performed: 14:41 - Problem List & Annotations (1) Aspiration pneumonia SNOMED Code(s): 353470739 Code(s): J69.0 - PNEUMONITIS DUE TO INHALATION OF FOOD AND VOMIT Status: Acute Current Visit: Yes (2) Sepsis SNOMED Code(s): 34666694 Code(s): A41.9 - SEPSIS, UNSPECIFIED ORGANISM Status: Acute Current Visit: Yes (3) Generalized weakness SNOMED Code(s): 27561319 Code(s): R53.1 - WEAKNESS Status: Acute Current Visit: No (4) Parkinsons SNOMED Code(s): 89577779 Code(s): G20 - PARKINSON'S DISEASE Status: Acute Current Visit: No (5) Pneumonia SNOMED Code(s): 226861960 Code(s): J18.9 - PNEUMONIA, UNSPECIFIED ORGANISM Status: Acute Priority: High Current Visit: No Qualifiers: Pneumonia type: due to unspecified organism Laterality: right Lung location: middle lobe of lung Qualified Code(s): J18.9 - Pneumonia, unspecified organism (6) Malnutrition SNOMED Code(s): 79280835 Code(s): E46 - UNSPECIFIED PROTEIN-CALORIE MALNUTRITION Status: Acute Current Visit: Yes (7) Hypomagnesemia SNOMED Code(s): 233919463 Code(s): E83.42 - HYPOMAGNESEMIA Status: Acute Current Visit: Yes (8) Hypophosphatemia SNOMED Code(s): 7763220 Code(s): E83.39 - OTHER DISORDERS OF PHOSPHORUS METABOLISM Status: Acute Current Visit: Yes (9) Hypokalemia SNOMED Code(s): 45730841 Code(s): E87.6 - HYPOKALEMIA Status: Acute Current Visit: Yes - Problem List Review Problem List Initiated/Reviewed/Updated: Yes - My Orders Last 24 Hours: My Active Orders 11/15/19 13:57 MAGNESIUM [CHEM] Routine - Plan Plan:: #. Probable sepsis due to aspiration pneumonia -Continue current abx -IVF with 5% dextrose in N/S @ 75 cc/h #. Probable aspiration Pneumonia -Patient's indicates that he sometimes pockets food in his mouth. Coughs sometimes when he eats. -Recently had a swallow study during his admission one month ago in [place] -Continue current abx #. Parkinson's disease -Appears to be getting worse -Has not been ambulatory lately -Continue current medications -Palliative following patient. is thinking about probably going home on hospice tomorrow #Malnutrition due to advance Parkinson's disease -Nutritional supplement with ensure -I suggested enteral feeding via NGT but spouse does not want it for him #Hypomagnesemia/Hypophosphatemia/Hypokalemia -Replace IV an rechecked level. #General diet #Code Status -Had discussion with spouse and will want patient be DNR/DNI -Palliative care consulted. thinking about home with hospice tomorrow
[2019-11-15] MEDS ORDERED: Dextrose 5%-0.9% NaCl with KCl 1,000 ML IV SCH ×2 (14:45→15:00)
[2019-11-15] MEDS: cefTRIAXone 1 GM in Sodium Chloride 0.9% 50 ML IV SCH (23:39)
[2019-11-16] MEDS: metroNIDAZOLE/Normal Saline 500 MG in Premix Bag 1 BAG IV SCH ×2 (06:17→13:42)
[2019-11-16] MEDS: Phosphorus #1 250 MG Tab PO SCH ×2 (09:30→13:42)
[2019-11-16] MEDS: Enoxaparin 40 MG/0.4 ML Syringe SUBCUT SCH (09:30)
[2019-11-16] MEDS: Carbidopa/Levodopa 25-250 MG Tab PO SCH (09:30)
--- NOTE | 2019-11-16 10:29 | PCM.DCSUM1 ---
Discharge Summary - Hospital Course Free Text/Narrative:: This is a 73-year-old man with medical history of Parkinson disease. He was admitted for possible aspiration pneumonia. He received IV abx. His hospital course was uncomplicated but his overall condition continue to deteriorate. Patient sleep all day and was unable to tolerate oral feed. reports this is how patient has been since his last discharge from [facility]. Enteral feeding was suggested but family declined. Palliative care was consulted. Patient decided on home hospice. Patient was discharged to hospice care. Diagnosis: Stroke: No - Discharge Data Discharge Date: 11/16/19 Discharge Disposition: DC/Tfer to Hospice - Home 52 Condition: Fair - Referral to Home Health Primary Care Physician: PCP Unobtainable - Discharge Diagnosis/Problem(s) (1) Aspiration pneumonia SNOMED Code(s): 552433078 ICD Code: J69.0 - PNEUMONITIS DUE TO INHALATION OF FOOD AND VOMIT Status: Acute Current Visit: Yes (2) Sepsis SNOMED Code(s): 18212568 ICD Code: A41.9 - SEPSIS, UNSPECIFIED ORGANISM Status: Acute Current Visit: Yes (3) Generalized weakness SNOMED Code(s): 40071865 ICD Code: R53.1 - WEAKNESS Status: Acute Current Visit: No (4) Parkinsons SNOMED Code(s): 75119107 ICD Code: G20 - PARKINSON'S DISEASE Status: Acute Current Visit: No (5) Pneumonia SNOMED Code(s): 858995413 ICD Code: J18.9 - PNEUMONIA, UNSPECIFIED ORGANISM Status: Acute Priority: High Current Visit: No Qualifiers: Pneumonia type: due to unspecified organism Laterality: right Lung location: middle lobe of lung Qualified Code(s): J18.9 - Pneumonia, u nspecified organism - Patient Summary/Data Consults: Consultations 11/12/19 10:44 Consult to Palliative Care [CONS] Routine - Discharge Plan *PRESCRIPTION DRUG MONITORING PROGRAM REVIEWED*: Not Applicable *COPY OF PRESCRIPTION DRUG MONITORING REPORT IN PATIENT XUAN: Not Applicable Prescriptions/Med Rec: Phosphorus #1 [Neutra-Phos] 250 mg PO TID #20 tablet Home Medications: Home Meds Carbidopa/Levodopa [Carbidopa-Levodopa 25-250] 1 tab PO BEDTIME 05/10/18 [History] Carbidopa/Levodopa [Carbidopa-Levodopa 25-250] 0.5 tab PO BIDMEALS 08/18/19 [History] Phosphorus #1 [Neutra-Phos] 250 mg PO TID #20 tablet 11/16/19 [Rx] Patient Handouts: Aspiration Precautions, Adult, Aspiration Pneumonia - Discharge Summary/Plan Comment DC Time >30 min.: Yes - General Info Date of Service: 11/16/19 Functional Status: Reports: Pain Controlled, Other (Patient lethagic. Sleeping) - Review of Systems General: Reports: Other (unable to obtained.) HEENT: Reports: No Symptoms Pulmonary: Reports: No Symptoms, Other Cardiovascular: Reports: No Symptoms Gastrointestinal: Reports: No Symptoms Genitourinary: Reports: No Symptoms Musculoskeletal: Reports: No Symptoms Skin: Reports: No Symptoms Neurological: Reports: No Symptoms Psychiatric: Reports: No Symptoms - Patient Data Vitals - Most Recent: Last Vital Signs Temp 98.1 F 11/16/19 08:00 Pulse 68 11/16/19 08:00 Resp 16 11/16/19 08:00 BP 97/58 L 11/16/19 08:00 Pulse Ox 96 11/16/19 08:00 Weight - Most Recent: 155 lb 4 oz I&O - Last 24 hours: Intake & Output 11/15/19 11/16/19 11/16/19 22:59 06:59 14:59 Intake Total 1220 850 100 Balance 1220 850 100 Lab Results - Last 24 hrs: Laboratory Results - last 24 hr 11/15/19 Range/Units 13:57 Magnesium 2.3 (1.8-2.4) mg/dL LILI Results - Last 24 hrs: Microbiology 11/11/19 20:29 Aerobic Blood Culture - Preliminary Blood NO GROWTH AFTER 4 DAYS Anaerobic Blood Culture - Final Med Orders - Current: Current Medications Acetaminophen (Tylenol) 650 mg PO Q4H PRN PRN Reason: Pain (Mild 1-3)/fever Carbidopa/Levodopa (Sinemet 25-250 Mg) 0.5 tab PO BIDMEALS [facility] Last Admin: 11/16/19 09:30 Dose: Not Given Documented by: Carbidopa/Levodopa (Sinemet 25-250 Mg) 1 tab PO BEDTIME [facility] Last Admin: 11/15/19 21:43 Dose: Not Given Documented by: Enoxaparin Sodium (Lovenox) 40 mg SUBCUT DAILY [facility] Last Admin: 11/16/19 09:30 Dose: Not Given Documented by: Ceftriaxone Sodium 1 gm/ (Sodium Chloride) 50 mls @ 100 mls/hr IV Q24H [facility] Last Admin: 11/15/19 23:39 Dose: 100 mls/hr Documented by: Metronidazole 500 mg/ Premix 100 mls @ 100 mls/hr IV Q8HR [facility] Last Infusion: 11/16/19 07:20 Dose: Infused Documented by: Potassium Chloride/Dextrose/Sod Cl (D5 Ns With 20 Meq Kcl) 1,000 mls @ 75 mls/hr IV ASDIRECTED [facility] Last Admin: 11/15/19 16:07 Dose: 75 mls/hr Documented by: Ondansetron HCl (Zofran) 4 mg IVPUSH Q6H PRN PRN Reason: Nausea/Vomiting Sodium Phosphate (Neutra-Phos) 250 mg PO TID [facility] Last Admin: 11/16/19 09:30 Dose: Not Given Documented by: Discontinued Medications Ceftriaxone Sodium 1 gm/ (Sodium Chloride) 50 mls @ 100 mls/hr IV ONETIME ONE Stop: 11/11/19 22:56 Last Admin: 11/11/19 22:46 Dose: 100 mls/hr Documented by: Sodium Chloride (Normal Saline) 1,000 mls @ 125 mls/hr IV ASDIRECTED [facility] Last Infusion: 11/12/19 11:21 Dose: Infused Documented by: Azithromycin 500 mg/ Sodium (Chloride) 250 mls @ 250 mls/hr IV Q24H [facility] Last Admin: 11/11/19 23:55 Dose: 250 mls/hr Documented by: Metronidazole 500 mg/ Premix 100 mls @ 100 mls/hr IV Q8H [facility] Last Admin: 11/12/19 08:57 Dose: 100 mls/hr Documented by: Azithromycin 500 mg/ Sodium (Chloride) 250 mls @ 250 mls/hr IV DAILY@1800 [facility] Dextrose/Sodium Chloride (Dextrose 5%-Normal Saline) 1,000 mls @ 75 mls/hr IV ASDIRECTED [facility] Last Infusion: 11/15/19 16:08 Dose: Infused Documented by: Magnesium Sulfate 2 gm/ Premix 50 mls @ 25 mls/hr IV ONETIME ONE Stop: 11/15/19 11:49 Last Infusion: 11/15/19 12:15 Dose: Infused Documented by: Potassium Chloride/Dextrose/Sod Cl (D5 Ns With 20 Meq Kcl) 1,000 mls @ 75 mls/hr IV ASDIRECTED [facility] - Exam Quality Assessment: Reports: DVT Prophylaxis General: Reports: Lethargic HEENT: Reports: Pupils Equal, Pupils Reactive, EOMI, Mucous Membr. Moist/[place] Neck: Reports: Supple Lungs: Reports: Clear to Auscultation, Normal Respiratory Effort Cardiovascular: Reports: Regular Rate, Regular Rhythm GI/Abdominal Exam: Normal Bowel Sounds, Soft, Non-Tender, No Organomegaly, No Distention, No Abnormal Bruit, No Mass, Pelvis Stable (Male) Exam: No Hernia, Normal Inspection, Normal Prostate, Circumcised Rectal (Males) Exam: Normal Exam, Normal Rectal Tone, Prostate Normal Back Exam: Reports: Normal Inspection, Full Range of Motion Extremities: Normal Inspection, Normal Range of Motion, Non-Tender, No Pedal Edema, Normal Capillary Refill Skin: Reports: Warm, Dry, Intact Wound/Incisions: Reports: Healing Well Neurological: Reports: No New Focal Deficit Psy/Mental Status: Reports: Other (lethalgic)
== END 2019-11-16 16:20 | disposition hospice, home (50) | DRG 871 ==
LOC: DL.ED 19:50 → DL.MS 22:44
PROVIDERS: ADMIT Hospitalist; ATTEND Student in an Organized Health Care Education/Training Program
DX: A41.9 Sepsis, unspecified organism (principal); J69.0 Pneumonitis due to inhalation of food and vomit; Z87.01 Personal history of pneumonia (recurrent); Z87.440 Personal history of urinary (tract) infections; Z79.899 Other long term (current) drug therapy; J18.9 Pneumonia, unspecified organism; E46 Unspecified protein-calorie malnutrition; G20 Parkinson's disease; Z20.828 Contact with and (suspected) exposure to other viral communicable diseases; Z66 Do not resuscitate; Z51.5 Encounter for palliative care; E83.42 Hypomagnesemia; E83.39 Other disorders of phosphorus metabolism; E87.6 Hypokalemia; Z68.21 Body mass index [BMI] 21.0-21.9, adult
CPT/HCPCS: 36415; 71045; 80053; 83605; 83880; 84484; 85025; 87040; 93005; 99285; U0002; 80048; 81001; 83735; 84100; 85027; 96374; A9270-GY; J0456; J0696; J1650; J3475; J3480; J3490; J7030; J7042; J7050